=== PATIENT | male | born 1930 | race Asian ===

== ENCOUNTER 2016-06-18 06:25 | Inpatient (IN) | payer MEDICARE ==
[~2016-06-18] VITALS: Ht 177.8 cm; Wt 77.7 kg
[~2016-06-18 06:25] MED LIST: AMLO5TAB66 PO; ASPI-1061 PO; ATOR10TA69 PO; BACTDSB PO; CLOP75 PO; FURO20 PO; GLIP-220 PO; METF850T2 PO; POTA8TAB60 PO; VALS160T2 PO
[2016-06-18 06:43] LABS: ABG A-A DIFF O2 332.4 mmHg (10-20.0); ABG BASE EXCESS -2.2 mmol/L (-2.0-3.0); ABG OXYHEMOGLOBIN 97.6 % (94.0-100.0); ABG PCO2 56 mmHg (35-45); ABG PH 7.264 (7.35-7.450)
[2016-06-18 06:44] LABS: ALLEN TEST, BLOOD GAS Positive
[2016-06-18] MEDS ORDERED: SODIUM BICARBONATE [ADULT] 8.4% 50 MEQ/50 ML SYRINGE IVP ONE (06:45)
[2016-06-18] MEDS ORDERED: PROPOFOL 1000 MG/ISO-OSM 100 ML IV PRN (06:47)
[2016-06-18 06:49] LABS: BASOPHILS # (AUTO) 0.01 K/uL (0.00-0.20); BASOPHILS % (AUTO) 0.1 % (0.0-2.0); EOSINOPHILS % (AUTO) 0.03 % (1.0-6.0); HEMATOCRIT 39.4 % (41-53); HEMOGLOBIN 12.5 g/dL (13.5-17.5); LYMPHOCYTES # (AUTO) 1.7 K/uL (1.0-4.8); LYMPHOCYTES % (AUTO) 12.9 % (22.0-44.0); MEAN CORPUSCULAR HEMOGLOBIN 27.9 pg (26.0-34.0); MEAN CORPUSCULAR HGB CONC 31.8 G/dL (31.0-37.0); MEAN CORPUSCULAR VOLUME 88 fL (80-100); MONOCYTES # (AUTO) 0.7 K/uL (0.1-1.0); MONOCYTES % (AUTO) 5.6 % (2.0-9.0); NEUTROPHILS # (AUTO) 10.8 K/uL (1.8-7.7); NEUTROPHILS % (AUTO) 81.4 % (40.0-70.0); PLATELET COUNT (AUTO) 201 K/uL (150-450); RED BLOOD CELL COUNT(AUTO) 4.49 MIL/uL (4.50-5.90); RED CELL DISTRIBUTION WIDTH 14.4 % (11.5-14.5); WHITE BLOOD COUNT (AUTO) 13.3 K/uL (4.5-11.0)
[2016-06-18] MEDS ORDERED: SUCCINYLCHOLINE CHLORIDE 20 MG/ML 10 ML VIAL IVP ONE (07:00)
[2016-06-18] MEDS ORDERED: ETOMIDATE 2 MG/ML 10 ML VIAL IVP ONE (07:00)
[2016-06-18 07:02] LABS: PROTHROMBIN TIME 10.3 SEC (9.4-11.6)
[2016-06-18 07:18] LABS: APPEARANCE,URINE CLEAR (CLEAR); GLUCOSE, URINE (UA) 100 mg/dL (NEGATIVE); KETONES,URINE NEGATIVE (NEGATIVE); LEUKOCYTE ESTERASE ,URINE NEGATIVE (NEGATIVE); OCCULT BLOOD,URINE SMALL (NEGATIVE); PROTEIN,URINE SEE CONFIRM (NEGATIVE)
[2016-06-18 07:20] LABS: ADD UA MICROSCOPIC YES
[2016-06-18 07:24] LABS: SULFOSALICYLIC ACID,URINE 3+ (Negative)
[2016-06-18 07:25] LABS: WBC,URINE 0-2 /HPF (0-5)
[2016-06-18 07:26] LABS: TRANSITIONAL EPI CELLS,URINE Rare /LPF (None Seen)
[2016-06-18 07:48] LABS: ORIG DRAW (USER) PTCARESTAF
[2016-06-18] MEDS ORDERED: LEVOFLOXACIN 750 MG/D5% WATER 150 ML IV ONE (08:00)
[2016-06-18 08:12] LABS: CALCIUM, TOTAL 7.7 mg/dL (8.8-10.5); CREATININE 1.95 mg/dL (0.60-1.30); POTASSIUM 5.8 mmol/L (3.5-5.1)
[2016-06-18 08:21] LABS: TROPONIN I < 0.02 ng/mL (0.00-0.05)
[2016-06-18 08:29] LABS: AMMONIA 17 umol/L (11-32)
[2016-06-18 08:37] LABS: ALBUMIN 2.7 g/dL (3.4-5.0); BILIRUBIN,TOTAL 0.6 mg/dL (0.1-1.0); TOTAL PROTEIN, SERUM 6.3 g/dL (6.4-8.2)
[2016-06-18] MEDS ORDERED: SODIUM POLYSTYRENE SULFONATE 15 GM/60 ML SUSPENSION BOTTLE PR ONE (09:45)
[2016-06-18] MEDS ORDERED: INSULIN REGULAR, HUMAN 100 UNITS/ML IVP ONE (09:45)
[2016-06-18] MEDS ORDERED: CALCIUM GLUCONATE 100 MG/ML 10 ML IVP ONE (09:45)
[2016-06-18] MEDS ORDERED: FUROSEMIDE 40 MG/4 ML VIAL IVP ONE (09:45)
[2016-06-18] MEDS ORDERED: ALBUTEROL SULFATE 2.5 MG/0.5 ML NEB SOLUTION NEB ONE (09:45)
[2016-06-18] MEDS ORDERED: DEXTROSE 50%-WATER 25 GM/50 ML SYRINGE IVP ONE (09:45)
[2016-06-18 09:56] LABS: GLUCOSE,POINT OF CARE 142 MG/DL (70-110)
[2016-06-18] MEDS ORDERED: ACETAMINOPHEN 1000 MG/ISO-OSM 100 ML IV ONE (10:00)
[2016-06-18] MEDS ORDERED: *CLINICAL-LEVOFLOXACIN IVPB DOSING CLINICAL ONE ×2 (10:30)
[2016-06-18] MEDS: ASPIRIN 81 MG CHEWABLE TABLET PO SCH (10:30)
[2016-06-18] MEDS: CLOPIDOGREL BISULFATE 75 MG TABLET PO SCH (10:30)
[2016-06-18] MEDS ORDERED: ACETAMINOPHEN 325 MG TABLET PO PRN (10:30)
[2016-06-18] MEDS: DOCUSATE SODIUM 100 MG CAPSULE PO SCH ×2 (10:30→20:25)
[2016-06-18] MEDS ORDERED: BISACODYL 10 MG RECTAL RECTAL SUPPOSITORY PR PRN (10:30)
[2016-06-18] MEDS: SIMVASTATIN 20 MG TABLET PO SCH (10:30)
[2016-06-18] MEDS ORDERED: 0.9% SODIUM CHLORIDE 5 ML NEB SOLUTION NEB ONE ×2 (10:40→21:39)
[2016-06-18 10:56] LABS: GLUCOSE COMMENT 1 Doctor Notified; GLUCOSE,POINT OF CARE 125 MG/DL (70-110)
[2016-06-18] MEDS ORDERED: VANCOMYCIN HCL 750 MG in DEXTROSE 5%-WATER 150 ML IV ONE (11:15)
[2016-06-18 11:57] LABS: INFLUENZA TYPE B NEGATIVE FOR TYPE B (NEGATIVE)
[2016-06-18] MEDS ORDERED: NOREPINEPHRINE 4 MG/D5%-WATER 250 ML IV ONE (12:19)
[2016-06-18] MEDS ORDERED: NOREPINEPHRINE 4 MG/D5%-WATER 250 ML IV PRN (12:29)
[2016-06-18] MEDS ORDERED: SODIUM CHLORIDE 0.9% 250 ML IV ONE (12:53)
[2016-06-18] MEDS: HEPARIN SODIUM,PORCINE 5,000 UNITS/ML VIAL SQ SCH ×2 (12:55→20:24)
[2016-06-18] MEDS: PANTOPRAZOLE SODIUM 40 MG/VIAL IVP SCH (12:55)
[2016-06-18] MEDS: ALBUMIN HUMAN 25%-12.5GM/50ML 50 ML IV SCH ×2 (12:55→20:23)
[2016-06-18 14:05] VITALS: BP 124/52
[2016-06-18 14:08] VITALS: BP 124/52
[2016-06-18] MEDS: PROPOFOL 1000 MG/ISO-OSM 100 ML IV PRN (15:54)
[2016-06-18 16:00] VITALS: BP 113/47
[2016-06-18 18:00] VITALS: BP 101/50
[2016-06-18] MEDS: DEXTROSE 50%-WATER 25 GM/50 ML SYRINGE IVP PRN ×2 (18:27→22:52)
[2016-06-18 18:37] LABS: PROCALCITONIN (PCT) 5.35 ng/mL (<0.50)
[2016-06-18 20:00] VITALS: BP 120/59
[2016-06-18] MEDS: BUDESONIDE 0.5 MG/2 ML NEB SOLUTION NEB SCH (21:41)
[2016-06-18 23:11] LABS: GLUCOSE,POINT OF CARE 119 MG/DL (70-110)
[2016-06-18 23:11] LABS: GLUCOSE COMMENT 1 Received Meds; GLUCOSE,POINT OF CARE 47 MG/DL (70-110)
[2016-06-18 23:11] LABS: GLUCOSE COMMENT 1 Juice/Food/D50 Given; GLUCOSE,POINT OF CARE 22 MG/DL (70-110)
[2016-06-19] VITALS: BP 95/45
[2016-06-19 01:13] LABS: CREATINE KINASE MB 12.2 ng/mL (0-5)
[2016-06-19] MEDS: PROPOFOL 1000 MG/ISO-OSM 100 ML IV PRN ×3 (03:22→20:34)
[2016-06-19 04:00] VITALS: BP 116/66
[2016-06-19] MEDS: ALBUMIN HUMAN 25%-12.5GM/50ML 50 ML IV SCH ×3 (04:27→20:50)
[2016-06-19] MEDS ORDERED: SODIUM CHLORIDE 0.9% 250 ML IV ONE (04:37)
[2016-06-19] MEDS: DEXTROSE 50%-WATER 25 GM/50 ML SYRINGE IVP PRN (04:38)
[2016-06-19 05:27] LABS: BASOPHILS % (AUTO) 0.2 % (0.0-2.0); EOSINOPHILS % (AUTO) 1.1 % (1.0-6.0); HEMATOCRIT 33.5 % (41-53); HEMOGLOBIN 10.9 g/dL (13.5-17.5); LYMPHOCYTES # (AUTO) 1.1 K/uL (1.0-4.8); LYMPHOCYTES % (AUTO) 10.4 % (22.0-44.0); MEAN CORPUSCULAR HEMOGLOBIN 28.2 pg (26.0-34.0); MEAN CORPUSCULAR HGB CONC 32.6 G/dL (31.0-37.0); MEAN CORPUSCULAR VOLUME 87 fL (80-100); NEUTROPHILS % (AUTO) 78.3 % (40.0-70.0); PLATELET COUNT (AUTO) 163 K/uL (150-450); RED BLOOD CELL COUNT(AUTO) 3.87 MIL/uL (4.50-5.90); RED CELL DISTRIBUTION WIDTH 14.3 % (11.5-14.5); WHITE BLOOD COUNT (AUTO) 10.2 K/uL (4.5-11.0)
[2016-06-19 05:52] LABS: CALCIUM, TOTAL 8.1 mg/dL (8.8-10.5); CREATININE 2.42 mg/dL (0.60-1.30); MAGNESIUM 1.9 mg/dL (1.80-2.40); PHOSPHORUS 2.6 mg/dL (2.5-4.9); POTASSIUM 4.9 mmol/L (3.5-5.1); THYROID STIMULATING HORMONE 1.42 uIU/mL (0.36-3.74)
[2016-06-19 08:00] VITALS: BP 109/49
[2016-06-19 08:24] LABS: ABG A-A DIFF O2 231.5 mmHg (10-20.0); ABG BASE EXCESS 5.3 mmol/L (-2.0-3.0); ABG OXYHEMOGLOBIN 98.6 % (94.0-100.0); ABG PCO2 41 mmHg (35-45); ABG PH 7.471 (7.35-7.450); ALLEN TEST, BLOOD GAS Positive; TEMPERATURE, FAHRENHEIT, BG 99.8 FAHREN (96.0-98.6)
[2016-06-19] MEDS: BUDESONIDE 0.5 MG/2 ML NEB SOLUTION NEB SCH ×2 (08:28→19:35)
[2016-06-19 08:36] LABS: GLUCOSE COMMENT 1 Received Meds; GLUCOSE,POINT OF CARE 59 MG/DL (70-110)
[2016-06-19 08:36] LABS: GLUCOSE,POINT OF CARE 120 MG/DL (70-110)
[2016-06-19] MEDS: DOCUSATE SODIUM 100 MG CAPSULE PO SCH ×2 (09:00→20:48)
[2016-06-19] MEDS: CLOPIDOGREL BISULFATE 75 MG TABLET PO SCH (09:00)
[2016-06-19] MEDS: ASPIRIN 81 MG CHEWABLE TABLET PO SCH (09:00)
[2016-06-19] MEDS: SIMVASTATIN 20 MG TABLET PO SCH (09:00)
[2016-06-19 09:30] LABS: CREATINE KINASE MB 8.7 ng/mL (0-5)
[2016-06-19] MEDS: DEXTROSE 10%-WATER 500 ML IV SCH (09:39)
[2016-06-19] MEDS: HEPARIN SODIUM,PORCINE 5,000 UNITS/ML VIAL SQ SCH ×2 (09:39→20:50)
[2016-06-19] MEDS: PANTOPRAZOLE SODIUM 40 MG/VIAL IVP SCH (09:39)
[2016-06-19] MEDS: VANCOMYCIN HCL 750 MG in DEXTROSE 5%-WATER 150 ML IV SCH (09:39)
[2016-06-19 12:00] VITALS: BP_SYST 108; BP_SYST 162; BP_DIAS 61; BP_DIAS 79
[2016-06-19 16:00] VITALS: BP 111/73
[2016-06-19 20:00] VITALS: BP 104/48
[2016-06-19] MEDS ORDERED: 0.9% SODIUM CHLORIDE 10 ML SYRINGE IVP PRN (22:30)
[2016-06-20] VITALS: BP_SYST 115; BP_SYST 127; BP_DIAS 55; BP_DIAS 63
[2016-06-20] MEDS: DEXTROSE 10%-WATER 500 ML IV SCH ×2 (00:21→17:50)
[2016-06-20] MEDS: INSULIN REGULAR, HUMAN 100 UNITS/ML SQ PRN ×2 (03:45→06:17)
[2016-06-20 03:46] LABS: GLUCOSE,POINT OF CARE 83 MG/DL (70-110)
[2016-06-20 03:50] LABS: GLUCOSE,POINT OF CARE 105 MG/DL (70-110)
[2016-06-20] MEDS: PROPOFOL 1000 MG/ISO-OSM 100 ML IV PRN ×2 (03:54→16:05)
[2016-06-20 04:00] VITALS: BP 128/49
[2016-06-20] MEDS: ALBUMIN HUMAN 25%-12.5GM/50ML 50 ML IV SCH ×3 (04:35→20:41)
[2016-06-20 04:52] LABS: BASOPHILS # (AUTO) 0.15 K/uL (0.00-0.20); BASOPHILS % (AUTO) 1.6 % (0.0-2.0); EOSINOPHILS # (AUTO) 0.19 K/uL (0.00-0.70); EOSINOPHILS % (AUTO) 1.97 % (1.0-6.0); HEMATOCRIT 28.9 % (41-53); HEMOGLOBIN 9.9 g/dL (13.5-17.5); LYMPHOCYTES # (AUTO) 1.3 K/uL (1.0-4.8); LYMPHOCYTES % (AUTO) 13.4 % (22.0-44.0); MEAN CORPUSCULAR HEMOGLOBIN 28.8 pg (26.0-34.0); MEAN CORPUSCULAR HGB CONC 34.3 G/dL (31.0-37.0); MEAN CORPUSCULAR VOLUME 84 fL (80-100); MONOCYTES # (AUTO) 1.1 K/uL (0.1-1.0); NEUTROPHILS # (AUTO) 6.9 K/uL (1.8-7.7); NEUTROPHILS % (AUTO) 72.1 % (40.0-70.0); PLATELET COUNT (AUTO) 138 K/uL (150-450); RED BLOOD CELL COUNT(AUTO) 3.45 MIL/uL (4.50-5.90); RED CELL DISTRIBUTION WIDTH 14.3 % (11.5-14.5); WHITE BLOOD COUNT (AUTO) 9.6 K/uL (4.5-11.0)
[2016-06-20 05:46] LABS: ANION GAP 7 mmol/L (8-16); CALCIUM, TOTAL 8.3 mg/dL (8.8-10.5); CARBON DIOXIDE 28 mmol/L (22-29); CHLORIDE 98 mmol/L (98-107); CREATININE 2.39 mg/dL (0.60-1.30); GLOMERULAR FILTR. RATE CALC 26 mL/min (>60); PHOSPHORUS 2.7 mg/dL (2.5-4.9); SODIUM SERUM 133 mmol/L (136-145); UREA NITROGEN, BLOOD 35 mg/dL (7-18)
[2016-06-20 05:47] LABS: CREATINE KINASE, TOTAL 1319 U/L (39-308)
[2016-06-20] MEDS: BUDESONIDE 0.5 MG/2 ML NEB SOLUTION NEB SCH ×2 (07:28→21:00)
[2016-06-20 08:00] VITALS: BP 109/53
[2016-06-20] MEDS: VANCOMYCIN HCL 750 MG in DEXTROSE 5%-WATER 150 ML IV SCH (08:47)
[2016-06-20] MEDS: LEVOFLOXACIN 750 MG/D5% WATER 150 ML IV SCH (08:48)
[2016-06-20] MEDS: PANTOPRAZOLE SODIUM 40 MG/VIAL IVP SCH (08:48)
[2016-06-20 08:49] LABS: ABG A-A DIFF O2 205.1 mmHg (10-20.0); ABG BASE EXCESS 2.5 mmol/L (-2.0-3.0); ABG HCO3 26.2 mmol/L (22.0-26.0); ABG OXYHEMOGLOBIN 71.5 % (94.0-100.0); ABG PCO2 39 mmHg (35-45); ABG PH 7.454 (7.35-7.450); TEMPERATURE, FAHRENHEIT, BG 98.6 FAHREN (96.0-98.6)
[2016-06-20] MEDS: ASPIRIN 81 MG CHEWABLE TABLET PO SCH (08:49)
[2016-06-20] MEDS: SIMVASTATIN 20 MG TABLET PO SCH (08:49)
[2016-06-20] MEDS: DOCUSATE SODIUM 100 MG CAPSULE PO SCH ×2 (08:49→20:49)
[2016-06-20] MEDS: CLOPIDOGREL BISULFATE 75 MG TABLET PO SCH (08:49)
[2016-06-20 08:50] LABS: ALLEN TEST, BLOOD GAS Positive
[2016-06-20] MEDS: HEPARIN SODIUM,PORCINE 5,000 UNITS/ML VIAL SQ SCH ×2 (08:50→21:00)
[2016-06-20 09:00] LABS: ABG A-A DIFF O2 99.8 mmHg (10-20.0); ABG BASE EXCESS 2.5 mmol/L (-2.0-3.0); ABG HCO3 26.9 mmol/L (22.0-26.0); ABG OXYHEMOGLOBIN 98.7 % (94.0-100.0); ABG PCO2 34 mmHg (35-45); ABG PH 7.497 (7.35-7.450); ALLEN TEST, BLOOD GAS Positive; TEMPERATURE, FAHRENHEIT, BG 98.6 FAHREN (96.0-98.6)
[2016-06-20 12:00] VITALS: BP 104/58
[2016-06-20 15:50] LABS: APPEARANCE,UNSPUN,BODY FLUID CLOUDY (CLEAR); COLOR,BODY FLUID YELLOW (LT YELLOW)
[2016-06-20 15:53] LABS: OTHER CELLS,BODY FLUID 0
[2016-06-20 16:00] VITALS: BP 125/62
[2016-06-20 20:00] VITALS: BP 107/62
[2016-06-20] MEDS ORDERED: SODIUM CHLORIDE 0.9% 250 ML IV ONE (20:40)
[2016-06-21] VITALS: BP 115/55
[2016-06-21] MEDS: PROPOFOL 1000 MG/ISO-OSM 100 ML IV PRN ×3 (03:48→17:27)
[2016-06-21 04:00] VITALS: BP 113/63
[2016-06-21 04:50] LABS: BASOPHILS % (AUTO) 0.5 % (0.0-2.0); EOSINOPHILS % (AUTO) 2.6 % (1.0-6.0); HEMATOCRIT 26.7 % (41-53); HEMOGLOBIN 8.9 g/dL (13.5-17.5); LYMPHOCYTES % (AUTO) 15.2 % (22.0-44.0); MEAN CORPUSCULAR HEMOGLOBIN 28.4 pg (26.0-34.0); MEAN CORPUSCULAR HGB CONC 33.3 G/dL (31.0-37.0); MEAN CORPUSCULAR VOLUME 85 fL (80-100); MONOCYTES # (AUTO) 0.7 K/uL (0.1-1.0); MONOCYTES % (AUTO) 9.9 % (2.0-9.0); NEUTROPHILS # (AUTO) 4.9 K/uL (1.8-7.7); NEUTROPHILS % (AUTO) 71.8 % (40.0-70.0); PLATELET COUNT (AUTO) 133 K/uL (150-450); RED BLOOD CELL COUNT(AUTO) 3.13 MIL/uL (4.50-5.90); RED CELL DISTRIBUTION WIDTH 14.4 % (11.5-14.5); WHITE BLOOD COUNT (AUTO) 6.8 K/uL (4.5-11.0)
[2016-06-21 05:28] LABS: ALANINE AMINOTRANSFERASE 26 U/L (12-78); ALBUMIN 2.9 g/dL (3.4-5.0); ANION GAP 6 mmol/L (8-16); ASPARTATE AMINOTRANSFERASE 57 U/L (15-37); BILIRUBIN,TOTAL 1.7 mg/dL (0.1-1.0); CALCIUM, TOTAL 8.2 mg/dL (8.8-10.5); CARBON DIOXIDE 29 mmol/L (22-29); CHLORIDE 100 mmol/L (98-107); CREATINE KINASE MB 1.3 ng/mL (0-5); CREATINE KINASE, TOTAL 481 U/L (39-308); CREATININE 2.21 mg/dL (0.60-1.30); GLOMERULAR FILTR. RATE CALC 29 mL/min (>60); PHOSPHORUS 2.8 mg/dL (2.5-4.9); POTASSIUM 3.6 mmol/L (3.5-5.1); SODIUM SERUM 135 mmol/L (136-145); UREA NITROGEN, BLOOD 29 mg/dL (7-18)
[2016-06-21] MEDS: ALBUMIN HUMAN 25%-12.5GM/50ML 50 ML IV SCH ×3 (05:34→21:17)
[2016-06-21] MEDS: DEXTROSE 10%-WATER 500 ML IV SCH (07:12)
[2016-06-21 08:00] VITALS: BP 113/65
[2016-06-21] MEDS: VANCOMYCIN HCL 750 MG in DEXTROSE 5%-WATER 150 ML IV SCH (08:15)
[2016-06-21] MEDS: ASPIRIN 81 MG CHEWABLE TABLET PO SCH (08:17)
[2016-06-21] MEDS: DOCUSATE SODIUM 100 MG CAPSULE PO SCH ×2 (08:17→21:00)
[2016-06-21] MEDS: PANTOPRAZOLE SODIUM 40 MG/VIAL IVP SCH (08:17)
[2016-06-21] MEDS: HEPARIN SODIUM,PORCINE 5,000 UNITS/ML VIAL SQ SCH ×2 (08:18→21:17)
[2016-06-21] MEDS: CLOPIDOGREL BISULFATE 75 MG TABLET PO SCH (08:18)
[2016-06-21] MEDS: SIMVASTATIN 20 MG TABLET PO SCH (08:18)
[2016-06-21 09:59] LABS: ABG A-A DIFF O2 87.1 mmHg (10-20.0); ABG BASE EXCESS 3.1 mmol/L (-2.0-3.0); ABG HCO3 27.2 mmol/L (22.0-26.0); ABG OXYHEMOGLOBIN 98.9 % (94.0-100.0); ABG PCO2 37 mmHg (35-45); ABG PH 7.474 (7.35-7.450); ALLEN TEST, BLOOD GAS Positive
[2016-06-21] MEDS: BUDESONIDE 0.5 MG/2 ML NEB SOLUTION NEB SCH ×2 (11:36→21:00)
[2016-06-21 12:00] VITALS: BP 116/50
[2016-06-21] MEDS ORDERED: VECURONIUM BROMIDE 10 MG/VIAL ONE (13:46)
[2016-06-21 16:00] VITALS: BP 133/66
[2016-06-21 20:00] VITALS: BP 110/49
[2016-06-21] MEDS ORDERED: SODIUM CHLORIDE 0.9% 250 ML IV ONE (21:14)
[2016-06-22] VITALS: BP 126/63
[2016-06-22] MEDS: DEXTROSE 10%-WATER 500 ML IV SCH ×2 (00:25→17:37)
[2016-06-22 01:36] LABS: GLUCOSE COMMENT 1 Received Meds; GLUCOSE,POINT OF CARE 141 MG/DL (70-110)
[2016-06-22] MEDS: PROPOFOL 1000 MG/ISO-OSM 100 ML IV PRN ×3 (01:36→21:30)
[2016-06-22 04:00] VITALS: BP 120/57
[2016-06-22 05:06] LABS: BASOPHILS % (AUTO) 0.7 % (0.0-2.0); EOSINOPHILS % (AUTO) 3.1 % (1.0-6.0); HEMATOCRIT 27.7 % (41-53); HEMOGLOBIN 9.3 g/dL (13.5-17.5); LYMPHOCYTES # (AUTO) 1.1 K/uL (1.0-4.8); LYMPHOCYTES % (AUTO) 17.5 % (22.0-44.0); MEAN CORPUSCULAR HEMOGLOBIN 28.9 pg (26.0-34.0); MEAN CORPUSCULAR HGB CONC 33.5 G/dL (31.0-37.0); MEAN CORPUSCULAR VOLUME 86 fL (80-100); MONOCYTES # (AUTO) 0.8 K/uL (0.1-1.0); MONOCYTES % (AUTO) 12.3 % (2.0-9.0); NEUTROPHILS # (AUTO) 4.1 K/uL (1.8-7.7); NEUTROPHILS % (AUTO) 66.4 % (40.0-70.0); PLATELET COUNT (AUTO) 138 K/uL (150-450); RED BLOOD CELL COUNT(AUTO) 3.21 MIL/uL (4.50-5.90); RED CELL DISTRIBUTION WIDTH 14.4 % (11.5-14.5); WHITE BLOOD COUNT (AUTO) 6.2 K/uL (4.5-11.0)
[2016-06-22 05:32] LABS: ALBUMIN 3.1 g/dL (3.4-5.0); BILIRUBIN,TOTAL 1.6 mg/dL (0.1-1.0); CALCIUM, TOTAL 8.3 mg/dL (8.8-10.5); CREATININE 1.88 mg/dL (0.60-1.30); MAGNESIUM 2.1 mg/dL (1.80-2.40); PHOSPHORUS 2.8 mg/dL (2.5-4.9); POTASSIUM 4.2 mmol/L (3.5-5.1); TOTAL PROTEIN, SERUM 6.2 g/dL (6.4-8.2)
[2016-06-22] MEDS: ALBUMIN HUMAN 25%-12.5GM/50ML 50 ML IV SCH ×3 (05:42→21:29)
[2016-06-22 08:00] VITALS: BP 122/62
[2016-06-22] MEDS: LEVOFLOXACIN 750 MG/D5% WATER 150 ML IV SCH (08:38)
[2016-06-22] MEDS: HEPARIN SODIUM,PORCINE 5,000 UNITS/ML VIAL SQ SCH ×2 (08:39→21:30)
[2016-06-22] MEDS: EPOETIN ALFA 10,000 UNITS/ML VIAL SQ SCH (08:39)
[2016-06-22] MEDS: VANCOMYCIN HCL 1 GM/D5% WATER 200 ML IV SCH (08:39)
[2016-06-22] MEDS: PANTOPRAZOLE SODIUM 40 MG/VIAL IVP SCH (08:39)
[2016-06-22] MEDS: ASPIRIN 81 MG CHEWABLE TABLET PO SCH (08:40)
[2016-06-22] MEDS: CLOPIDOGREL BISULFATE 75 MG TABLET PO SCH (08:41)
[2016-06-22] MEDS: SIMVASTATIN 20 MG TABLET PO SCH (08:41)
[2016-06-22] MEDS: DOCUSATE SODIUM 100 MG CAPSULE PO SCH ×2 (08:41→21:00)
[2016-06-22] MEDS: BUDESONIDE 0.5 MG/2 ML NEB SOLUTION NEB SCH ×2 (09:56→20:25)
[2016-06-22 10:08] LABS: ABG HCO3 25.5 mmol/L (22.0-26.0); ABG PCO2 37 mmHg (35-45); ABG PH 7.451 (7.35-7.450); TEMPERATURE, FAHRENHEIT, BG 98.1 FAHREN (96.0-98.6)
[2016-06-22 10:09] LABS: ALLEN TEST, BLOOD GAS Positive
[2016-06-22 12:00] VITALS: BP 129/51
[2016-06-22 16:00] VITALS: BP 115/50
[2016-06-22 17:27] LABS: GLUCOSE,POINT OF CARE 167 MG/DL (70-110)
[2016-06-22 17:27] LABS: GLUCOSE COMMENT 1 Received Meds; GLUCOSE,POINT OF CARE 151 MG/DL (70-110)
[2016-06-22 17:27] LABS: GLUCOSE,POINT OF CARE 139 MG/DL (70-110)
[2016-06-22 17:27] LABS: GLUCOSE,POINT OF CARE 133 MG/DL (70-110)
[2016-06-22 17:27] LABS: GLUCOSE,POINT OF CARE 122 MG/DL (70-110)
[2016-06-22 17:27] LABS: GLUCOSE,POINT OF CARE 181 MG/DL (70-110)
[2016-06-22 20:00] VITALS: BP 113/51
[2016-06-22] MEDS ORDERED: SODIUM CHLORIDE 0.9% 250 ML IV ONE (21:26)
[2016-06-23] VITALS: BP 114/52
[2016-06-23] MEDS ORDERED: LIDOCAINE HCL 4% 50 ML SOLUTION TP ONE
[2016-06-23] MEDS ORDERED: ETOMIDATE 2 MG/ML 10 ML VIAL IVP ONE
[2016-06-23] MEDS ORDERED: LIDOCAINE HCL 2% 30 ML JELLY TP ONE
[2016-06-23] MEDS ORDERED: VECURONIUM BROMIDE 10 MG/VIAL IVP ONE
[2016-06-23] MEDS ORDERED: LIDOCAINE HCL 2% 5 ML JELLY TP ONE
[2016-06-23 00:16] LABS: GLUCOSE,POINT OF CARE 98 MG/DL (70-110)
[2016-06-23 00:16] LABS: GLUCOSE,POINT OF CARE 71 MG/DL (70-110)
[2016-06-23 04:00] VITALS: BP 132/65
[2016-06-23 04:36] LABS: GLUCOSE,POINT OF CARE 213 MG/DL (70-110)
[2016-06-23 04:41] LABS: GLUCOSE,POINT OF CARE 176 MG/DL (70-110)
[2016-06-23] MEDS: ALBUMIN HUMAN 25%-12.5GM/50ML 50 ML IV SCH ×3 (04:43→21:27)
[2016-06-23 05:05] LABS: BASOPHILS # (AUTO) 0.01 K/uL (0.00-0.20); BASOPHILS % (AUTO) 0.2 % (0.0-2.0); EOSINOPHILS # (AUTO) 0.26 K/uL (0.00-0.70); EOSINOPHILS % (AUTO) 3.86 % (1.0-6.0); HEMATOCRIT 27.2 % (41-53); HEMOGLOBIN 9.2 g/dL (13.5-17.5); LYMPHOCYTES # (AUTO) 1.2 K/uL (1.0-4.8); LYMPHOCYTES % (AUTO) 17.6 % (22.0-44.0); MEAN CORPUSCULAR HEMOGLOBIN 28.9 pg (26.0-34.0); MEAN CORPUSCULAR HGB CONC 33.8 G/dL (31.0-37.0); MEAN CORPUSCULAR VOLUME 86 fL (80-100); MONOCYTES # (AUTO) 0.8 K/uL (0.1-1.0); MONOCYTES % (AUTO) 12.6 % (2.0-9.0); NEUTROPHILS # (AUTO) 4.4 K/uL (1.8-7.7); NEUTROPHILS % (AUTO) 65.8 % (40.0-70.0); PLATELET COUNT (AUTO) 145 K/uL (150-450); RED BLOOD CELL COUNT(AUTO) 3.17 MIL/uL (4.50-5.90); RED CELL DISTRIBUTION WIDTH 14.9 % (11.5-14.5); WHITE BLOOD COUNT (AUTO) 6.6 K/uL (4.5-11.0)
[2016-06-23 05:24] LABS: ALBUMIN 3.4 g/dL (3.4-5.0); BILIRUBIN,TOTAL 1.4 mg/dL (0.1-1.0); CALCIUM, TOTAL 8.4 mg/dL (8.8-10.5); CREATININE 1.75 mg/dL (0.60-1.30); POTASSIUM 4.4 mmol/L (3.5-5.1); TOTAL PROTEIN, SERUM 6.3 g/dL (6.4-8.2)
[2016-06-23] MEDS: BUDESONIDE 0.5 MG/2 ML NEB SOLUTION NEB SCH ×2 (07:51→19:25)
[2016-06-23 08:00] VITALS: BP 134/71
[2016-06-23] MEDS: HEPARIN SODIUM,PORCINE 5,000 UNITS/ML VIAL SQ SCH ×2 (08:11→21:29)
[2016-06-23] MEDS: PROPOFOL 1000 MG/ISO-OSM 100 ML IV PRN (08:11)
[2016-06-23] MEDS: PANTOPRAZOLE SODIUM 40 MG/VIAL IVP SCH (08:11)
[2016-06-23] MEDS: DOCUSATE SODIUM 100 MG CAPSULE PO SCH ×2 (08:12→21:00)
[2016-06-23] MEDS: CLOPIDOGREL BISULFATE 75 MG TABLET PO SCH (08:12)
[2016-06-23] MEDS: VANCOMYCIN HCL 1 GM/D5% WATER 200 ML IV SCH (08:12)
[2016-06-23] MEDS: ASPIRIN 81 MG CHEWABLE TABLET PO SCH (08:12)
[2016-06-23] MEDS: SIMVASTATIN 20 MG TABLET PO SCH (08:13)
[2016-06-23 08:48] LABS: ABG A-A DIFF O2 71.8 mmHg (10-20.0); ABG BASE EXCESS -0.7 mmol/L (-2.0-3.0); ABG HCO3 24.1 mmol/L (22.0-26.0); ABG OXYHEMOGLOBIN 98.5 % (94.0-100.0); ABG PCO2 35 mmHg (35-45); ABG PH 7.438 (7.35-7.450)
[2016-06-23 08:51] LABS: ALLEN TEST, BLOOD GAS Positive
[2016-06-23 09:31] LABS: GLUCOSE,POINT OF CARE 103 MG/DL (70-110)
[2016-06-23 09:31] LABS: GLUCOSE,POINT OF CARE 112 MG/DL (70-110)
[2016-06-23 09:57] LABS: GLUCOSE,POINT OF CARE 128 MG/DL (70-110)
[2016-06-23 09:57] LABS: GLUCOSE,POINT OF CARE 136 MG/DL (70-110)
[2016-06-23 09:57] LABS: GLUCOSE,POINT OF CARE 125 MG/DL (70-110)
[2016-06-23 09:57] LABS: GLUCOSE,POINT OF CARE 126 MG/DL (70-110)
[2016-06-23 10:01] LABS: GLUCOSE,POINT OF CARE 184 MG/DL (70-110)
[2016-06-23 10:01] LABS: GLUCOSE,POINT OF CARE 182 MG/DL (70-110)
[2016-06-23 10:01] LABS: GLUCOSE,POINT OF CARE 175 MG/DL (70-110)
[2016-06-23 10:01] LABS: GLUCOSE,POINT OF CARE 172 MG/DL (70-110)
[2016-06-23 10:01] LABS: GLUCOSE,POINT OF CARE 155 MG/DL (70-110)
[2016-06-23] MEDS: DEXTROSE 10%-WATER 500 ML IV SCH (10:46)
[2016-06-23 12:00] VITALS: BP 134/68
[2016-06-23] MEDS ORDERED: SODIUM CHLORIDE 0.9% 250 ML IV ONE ×2 (12:39→19:21)
[2016-06-23 12:51] LABS: GLUCOSE,POINT OF CARE 203 MG/DL (70-110)
[2016-06-23 12:52] LABS: ABG A-A DIFF O2 93.5 mmHg (10-20.0); ABG BASE EXCESS 1.3 mmol/L (-2.0-3.0); ABG HCO3 25.7 mmol/L (22.0-26.0); ABG OXYHEMOGLOBIN 98.1 % (94.0-100.0); ABG PCO2 39 mmHg (35-45); ABG PH 7.438 (7.35-7.450); TEMPERATURE, FAHRENHEIT, BG 99.1 FAHREN (96.0-98.6)
[2016-06-23 12:53] LABS: ALLEN TEST, BLOOD GAS Positive
[2016-06-23 16:00] VITALS: BP 134/73
[2016-06-23] MEDS ORDERED: RAPID SEQUENCE KIT [RSI] 1 EACH KIT ONE ×2 (16:04)
[2016-06-23 16:09] LABS: ABG A-A DIFF O2 103.4 mmHg (10-20.0); ABG BASE EXCESS -0.2 mmol/L (-2.0-3.0); ABG HCO3 23.4 mmol/L (22.0-26.0); ABG OXYHEMOGLOBIN 79.2 % (94.0-100.0); ABG PCO2 62 mmHg (35-45); ABG PH 7.258 (7.35-7.450); TEMPERATURE, FAHRENHEIT, BG 100.3 FAHREN (96.0-98.6)
[2016-06-23 16:10] LABS: ALLEN TEST, BLOOD GAS Positive
[2016-06-23 20:00] VITALS: BP 123/62
[2016-06-23] MEDS: METOPROLOL TARTRATE 5 MG/5 ML VIAL IVP SCH (21:29)
[2016-06-23 22:05] LABS: GLUCOSE,POINT OF CARE 187 MG/DL (70-110)
[2016-06-24] VITALS: BP 109/60
[2016-06-24 04:00] VITALS: BP 142/73
[2016-06-24] MEDS: DEXTROSE 10%-WATER 500 ML IV SCH ×2 (04:30→21:23)
[2016-06-24] MEDS: ALBUMIN HUMAN 25%-12.5GM/50ML 50 ML IV SCH ×3 (04:31→21:22)
[2016-06-24 06:22] LABS: BASOPHILS % (AUTO) 0.1 % (0.0-2.0); EOSINOPHILS % (AUTO) 2.4 % (1.0-6.0); HEMATOCRIT 29.5 % (41-53); HEMOGLOBIN 9.6 g/dL (13.5-17.5); LYMPHOCYTES # (AUTO) 1.1 K/uL (1.0-4.8); LYMPHOCYTES % (AUTO) 12.9 % (22.0-44.0); MEAN CORPUSCULAR HEMOGLOBIN 28.4 pg (26.0-34.0); MEAN CORPUSCULAR HGB CONC 32.7 G/dL (31.0-37.0); MEAN CORPUSCULAR VOLUME 87 fL (80-100); MONOCYTES # (AUTO) 1.1 K/uL (0.1-1.0); MONOCYTES % (AUTO) 12.5 % (2.0-9.0); NEUTROPHILS # (AUTO) 6.4 K/uL (1.8-7.7); NEUTROPHILS % (AUTO) 72.1 % (40.0-70.0); PLATELET COUNT (AUTO) 145 K/uL (150-450); RED CELL DISTRIBUTION WIDTH 14.3 % (11.5-14.5); WHITE BLOOD COUNT (AUTO) 8.8 K/uL (4.5-11.0)
[2016-06-24 06:35] LABS: ALBUMIN 3.7 g/dL (3.4-5.0); BILIRUBIN,TOTAL 1.9 mg/dL (0.1-1.0); CALCIUM, TOTAL 8.9 mg/dL (8.8-10.5); CREATININE 1.76 mg/dL (0.60-1.30); MAGNESIUM 2.1 mg/dL (1.80-2.40); POTASSIUM 4.6 mmol/L (3.5-5.1); TOTAL PROTEIN, SERUM 6.8 g/dL (6.4-8.2)
[2016-06-24] MEDS ORDERED: HEPARIN SODIUM,PORCINE 5,000 UNITS/ML VIAL IVP PRN ×2 (07:00)
[2016-06-24] MEDS ORDERED: HEPARIN SODIUM,PORCINE 5,000 UNITS/ML VIAL IVP ONE ×2 (07:00→11:00)
[2016-06-24 07:39] LABS: PROTHROMBIN TIME 10.6 SEC (9.4-11.6)
[2016-06-24] MEDS: BUDESONIDE 0.5 MG/2 ML NEB SOLUTION NEB SCH ×2 (07:51→19:46)
[2016-06-24 08:00] VITALS: BP 155/95
[2016-06-24] MEDS: PANTOPRAZOLE SODIUM 40 MG/VIAL IVP SCH (08:51)
[2016-06-24] MEDS: LEVOFLOXACIN 750 MG/D5% WATER 150 ML IV SCH (08:51)
[2016-06-24] MEDS: VANCOMYCIN HCL 1 GM/D5% WATER 200 ML IV SCH (08:51)
[2016-06-24] MEDS: DOCUSATE SODIUM 100 MG CAPSULE PO SCH ×2 (08:52→21:00)
[2016-06-24] MEDS: CLOPIDOGREL BISULFATE 75 MG TABLET PO SCH (08:52)
[2016-06-24] MEDS: SIMVASTATIN 20 MG TABLET PO SCH (08:52)
[2016-06-24] MEDS: METOPROLOL TARTRATE 5 MG/5 ML VIAL IVP SCH ×2 (08:52→21:22)
[2016-06-24] MEDS: ASPIRIN 81 MG CHEWABLE TABLET PO SCH (08:52)
[2016-06-24] MEDS ORDERED: ACETAMINOPHEN 650 MG/ISO-OSM 65 ML IV PRN (09:15)
[2016-06-24 09:37] LABS: ABG A-A DIFF O2 74.8 mmHg (10-20.0); ABG BASE EXCESS -0.4 mmol/L (-2.0-3.0); ABG HCO3 24.6 mmol/L (22.0-26.0); ABG OXYHEMOGLOBIN 96.1 % (94.0-100.0); ABG PCO2 38 mmHg (35-45); ABG PH 7.423 (7.35-7.450); ALLEN TEST, BLOOD GAS Positive; TEMPERATURE, FAHRENHEIT, BG 101.4 FAHREN (96.0-98.6)
[2016-06-24 10:56] LABS: GLUCOSE,POINT OF CARE 157 MG/DL (70-110)
[2016-06-24 10:56] LABS: GLUCOSE,POINT OF CARE 169 MG/DL (70-110)
[2016-06-24 10:56] LABS: GLUCOSE,POINT OF CARE 163 MG/DL (70-110)
[2016-06-24] MEDS: HEPARIN SODIUM 25000 UNITS/D5W 250 ML IV PRN (10:58)
[2016-06-24 11:06] LABS: GLUCOSE,POINT OF CARE 178 MG/DL (70-110)
[2016-06-24 11:54] LABS: APPEARANCE,URINE CLOUDY (CLEAR); GLUCOSE, URINE (UA) NEGATIVE (NEGATIVE); KETONES,URINE NEGATIVE (NEGATIVE); LEUKOCYTE ESTERASE ,URINE NEGATIVE (NEGATIVE); OCCULT BLOOD,URINE NEGATIVE (NEGATIVE); PROTEIN,URINE SEE CONFIRM (NEGATIVE)
[2016-06-24 12:00] VITALS: BP 94/57
[2016-06-24 12:11] LABS: SULFOSALICYLIC ACID,URINE 2+ (Negative)
[2016-06-24 12:12] LABS: RBC,URINE 0-2 /HPF (0-2); SQUAMOUS EPITHELIAL CELL,UR Few /LPF (None Seen); WBC,URINE 0-2 /HPF (0-5)
[2016-06-24 16:00] VITALS: BP 99/50
[2016-06-24] MEDS ORDERED: SODIUM CHLORIDE 0.9% 250 ML IV ONE (19:55)
[2016-06-24 20:00] VITALS: BP 111/60
[2016-06-25] VITALS: BP 112/61
[2016-06-25 04:00] VITALS: BP 117/64
[2016-06-25] MEDS: ALBUMIN HUMAN 25%-12.5GM/50ML 50 ML IV SCH ×3 (05:06→21:33)
[2016-06-25 05:19] LABS: BASOPHILS # (AUTO) 0.02 K/uL (0.00-0.20); BASOPHILS % (AUTO) 0.2 % (0.0-2.0); EOSINOPHILS # (AUTO) 0.23 K/uL (0.00-0.70); EOSINOPHILS % (AUTO) 2.58 % (1.0-6.0); HEMATOCRIT 25.7 % (41-53); HEMOGLOBIN 8.6 g/dL (13.5-17.5); LYMPHOCYTES # (AUTO) 1.5 K/uL (1.0-4.8); LYMPHOCYTES % (AUTO) 16.8 % (22.0-44.0); MEAN CORPUSCULAR HEMOGLOBIN 28.3 pg (26.0-34.0); MEAN CORPUSCULAR HGB CONC 33.3 G/dL (31.0-37.0); MEAN CORPUSCULAR VOLUME 85 fL (80-100); MONOCYTES # (AUTO) 1.2 K/uL (0.1-1.0); MONOCYTES % (AUTO) 12.8 % (2.0-9.0); NEUTROPHILS # (AUTO) 6.2 K/uL (1.8-7.7); NEUTROPHILS % (AUTO) 67.7 % (40.0-70.0); PLATELET COUNT (AUTO) 135 K/uL (150-450); RED BLOOD CELL COUNT(AUTO) 3.02 MIL/uL (4.50-5.90); RED CELL DISTRIBUTION WIDTH 14.9 % (11.5-14.5); WHITE BLOOD COUNT (AUTO) 9.1 K/uL (4.5-11.0)
[2016-06-25 05:42] LABS: ALBUMIN 3.3 g/dL (3.4-5.0); BILIRUBIN,TOTAL 2.2 mg/dL (0.1-1.0); CALCIUM, TOTAL 8.6 mg/dL (8.8-10.5); CREATININE 1.97 mg/dL (0.60-1.30); POTASSIUM 4.1 mmol/L (3.5-5.1); TOTAL PROTEIN, SERUM 6.4 g/dL (6.4-8.2)
[2016-06-25 07:04] LABS: ABG A-A DIFF O2 84.6 mmHg (10-20.0); ABG BASE EXCESS -0.1 mmol/L (-2.0-3.0); ABG HCO3 24.6 mmol/L (22.0-26.0); ABG OXYHEMOGLOBIN 95.5 % (94.0-100.0); ABG PCO2 36 mmHg (35-45); ABG PH 7.443 (7.35-7.450); TEMPERATURE, FAHRENHEIT, BG 98.7 FAHREN (96.0-98.6)
[2016-06-25 07:05] LABS: ALLEN TEST, BLOOD GAS Positive
[2016-06-25] MEDS: BUDESONIDE 0.5 MG/2 ML NEB SOLUTION NEB SCH ×2 (07:24→20:17)
[2016-06-25] MEDS: VANCOMYCIN HCL 1 GM/D5% WATER 200 ML IV SCH (07:46)
[2016-06-25] MEDS: METOPROLOL TARTRATE 5 MG/5 ML VIAL IVP SCH ×2 (08:31→21:33)
[2016-06-25] MEDS: EPOETIN ALFA 10,000 UNITS/ML VIAL SQ SCH (08:31)
[2016-06-25] MEDS: PANTOPRAZOLE SODIUM 40 MG/VIAL IVP SCH (08:31)
[2016-06-25 09:00] VITALS: BP 114/65
[2016-06-25] MEDS: ASPIRIN 81 MG CHEWABLE TABLET PO SCH (09:00)
[2016-06-25] MEDS: CLOPIDOGREL BISULFATE 75 MG TABLET PO SCH (09:00)
[2016-06-25] MEDS: SIMVASTATIN 20 MG TABLET PO SCH (09:00)
[2016-06-25] MEDS: DOCUSATE SODIUM 100 MG CAPSULE PO SCH ×2 (09:00→21:00)
[2016-06-25 12:00] VITALS: BP 103/54
[2016-06-25] MEDS ORDERED: SODIUM CHLORIDE 0.9% 250 ML IV ONE (15:10)
[2016-06-25] MEDS: DEXTROSE 10%-WATER 500 ML IV SCH (15:18)
[2016-06-25] MEDS: HEPARIN SODIUM 25000 UNITS/D5W 250 ML IV PRN (15:19)
[2016-06-25 16:00] VITALS: BP 112/68
[2016-06-25 20:00] VITALS: BP 117/58
[2016-06-25 23:21] LABS: GLUCOSE,POINT OF CARE 135 MG/DL (70-110)
[2016-06-25 23:21] LABS: GLUCOSE,POINT OF CARE 141 MG/DL (70-110)
[2016-06-25 23:21] LABS: GLUCOSE,POINT OF CARE 148 MG/DL (70-110)
[2016-06-25 23:21] LABS: GLUCOSE,POINT OF CARE 147 MG/DL (70-110)
[2016-06-25] MEDS: INSULIN REGULAR, HUMAN 100 UNITS/ML SQ PRN (23:56)
[2016-06-26] VITALS: BP 121/66
[2016-06-26 04:00] VITALS: BP 131/65
[2016-06-26 05:03] LABS: BASOPHILS % (AUTO) 0.5 % (0.0-2.0); EOSINOPHILS % (AUTO) 3.7 % (1.0-6.0); HEMATOCRIT 26.6 % (41-53); HEMOGLOBIN 8.6 g/dL (13.5-17.5); LYMPHOCYTES # (AUTO) 1.3 K/uL (1.0-4.8); LYMPHOCYTES % (AUTO) 17.5 % (22.0-44.0); MEAN CORPUSCULAR HEMOGLOBIN 27.9 pg (26.0-34.0); MEAN CORPUSCULAR HGB CONC 32.3 G/dL (31.0-37.0); MEAN CORPUSCULAR VOLUME 86 fL (80-100); MONOCYTES # (AUTO) 0.9 K/uL (0.1-1.0); MONOCYTES % (AUTO) 11.9 % (2.0-9.0); NEUTROPHILS # (AUTO) 4.9 K/uL (1.8-7.7); NEUTROPHILS % (AUTO) 66.4 % (40.0-70.0); PLATELET COUNT (AUTO) 135 K/uL (150-450); RED BLOOD CELL COUNT(AUTO) 3.08 MIL/uL (4.50-5.90); RED CELL DISTRIBUTION WIDTH 14.9 % (11.5-14.5); WHITE BLOOD COUNT (AUTO) 7.3 K/uL (4.5-11.0)
[2016-06-26] MEDS: ALBUMIN HUMAN 25%-12.5GM/50ML 50 ML IV SCH ×3 (05:13→21:15)
[2016-06-26 05:29] LABS: ALBUMIN 3.5 g/dL (3.4-5.0); BILIRUBIN,TOTAL 2.3 mg/dL (0.1-1.0); CALCIUM, TOTAL 8.8 mg/dL (8.8-10.5); CREATININE 1.82 mg/dL (0.60-1.30); MAGNESIUM 2.1 mg/dL (1.80-2.40); PHOSPHORUS 2.9 mg/dL (2.5-4.9); POTASSIUM 3.9 mmol/L (3.5-5.1); TOTAL PROTEIN, SERUM 6.5 g/dL (6.4-8.2)
[2016-06-26] MEDS: DEXTROSE 10%-WATER 500 ML IV SCH ×2 (06:32→23:25)
[2016-06-26 08:00] VITALS: BP 144/65
[2016-06-26] MEDS: BUDESONIDE 0.5 MG/2 ML NEB SOLUTION NEB SCH ×2 (08:11→20:42)
[2016-06-26 08:31] LABS: GLUCOSE,POINT OF CARE 129 MG/DL (70-110)
[2016-06-26 08:31] LABS: GLUCOSE,POINT OF CARE 144 MG/DL (70-110)
[2016-06-26] MEDS: ASPIRIN 81 MG CHEWABLE TABLET PO SCH (09:00)
[2016-06-26] MEDS ORDERED: EPOETIN ALFA 10,000 UNITS/ML VIAL SQ SCH (09:00)
[2016-06-26] MEDS: SIMVASTATIN 20 MG TABLET PO SCH (09:00)
[2016-06-26] MEDS: METOPROLOL TARTRATE 5 MG/5 ML VIAL IVP SCH ×2 (09:00→09:08)
[2016-06-26] MEDS: CLOPIDOGREL BISULFATE 75 MG TABLET PO SCH (09:00)
[2016-06-26] MEDS: DOCUSATE SODIUM 100 MG CAPSULE PO SCH ×2 (09:00→21:00)
[2016-06-26 09:01] LABS: GLUCOSE,POINT OF CARE 178 MG/DL (70-110)
[2016-06-26] MEDS: VANCOMYCIN HCL 1 GM/D5% WATER 200 ML IV SCH (09:03)
[2016-06-26] MEDS: PANTOPRAZOLE SODIUM 40 MG/VIAL IVP SCH (09:04)
[2016-06-26] MEDS: LEVOFLOXACIN 750 MG/D5% WATER 150 ML IV SCH (09:04)
[2016-06-26 09:06] LABS: GLUCOSE,POINT OF CARE 128 MG/DL (70-110)
[2016-06-26 09:06] LABS: GLUCOSE,POINT OF CARE 126 MG/DL (70-110)
[2016-06-26 09:06] LABS: GLUCOSE,POINT OF CARE 144 MG/DL (70-110)
[2016-06-26 09:06] LABS: GLUCOSE,POINT OF CARE 133 MG/DL (70-110)
[2016-06-26 09:11] LABS: GLUCOSE,POINT OF CARE 135 MG/DL (70-110)
[2016-06-26 11:05] LABS: ABG A-A DIFF O2 84.1 mmHg (10-20.0); ABG BASE EXCESS -2.2 mmol/L (-2.0-3.0); ABG OXYHEMOGLOBIN 96.2 % (94.0-100.0); ABG PCO2 32 mmHg (35-45); ABG PH 7.447 (7.35-7.450); ALLEN TEST, BLOOD GAS Positive
[2016-06-26 11:34] LABS: TOTAL PROTEIN,BODY FLUID,REF 2.8 g/dL
[2016-06-26 12:00] VITALS: BP 137/69
[2016-06-26 12:50] LABS: ABG A-A DIFF O2 95.2 mmHg (10-20.0); ABG BASE EXCESS -2.5 mmol/L (-2.0-3.0); ABG HCO3 22.6 mmol/L (22.0-26.0); ABG OXYHEMOGLOBIN 92.9 % (94.0-100.0); ABG PCO2 37 mmHg (35-45); ABG PH 7.394 (7.35-7.450); ALLEN TEST, BLOOD GAS Positive; TEMPERATURE, FAHRENHEIT, BG 99.3 FAHREN (96.0-98.6)
[2016-06-26 16:00] VITALS: BP 138/78
[2016-06-26 17:12] LABS: GLUCOSE,POINT OF CARE 165 MG/DL (70-110)
[2016-06-26 18:46] LABS: HEMATOCRIT 26.2 % (41-53); HEMOGLOBIN 8.4 g/dL (13.5-17.5)
[2016-06-26 20:00] VITALS: BP 126/63
[2016-06-26] MEDS: HEPARIN SODIUM 25000 UNITS/D5W 250 ML IV PRN (22:48)
[2016-06-27] VITALS: BP 128/57
[2016-06-27 04:00] VITALS: BP 136/71
[2016-06-27] MEDS: ALBUMIN HUMAN 25%-12.5GM/50ML 50 ML IV SCH (05:14)
[2016-06-27 05:27] LABS: BASOPHILS % (AUTO) 0.5 % (0.0-2.0); EOSINOPHILS % (AUTO) 3.3 % (1.0-6.0); HEMOGLOBIN 8.8 g/dL (13.5-17.5); LYMPHOCYTES # (AUTO) 1.3 K/uL (1.0-4.8); LYMPHOCYTES % (AUTO) 19.8 % (22.0-44.0); MEAN CORPUSCULAR HEMOGLOBIN 28.1 pg (26.0-34.0); MEAN CORPUSCULAR HGB CONC 32.7 G/dL (31.0-37.0); MEAN CORPUSCULAR VOLUME 86 fL (80-100); MONOCYTES # (AUTO) 0.8 K/uL (0.1-1.0); MONOCYTES % (AUTO) 11.9 % (2.0-9.0); NEUTROPHILS # (AUTO) 4.3 K/uL (1.8-7.7); NEUTROPHILS % (AUTO) 64.5 % (40.0-70.0); PLATELET COUNT (AUTO) 155 K/uL (150-450); RED BLOOD CELL COUNT(AUTO) 3.15 MIL/uL (4.50-5.90); RED CELL DISTRIBUTION WIDTH 14.6 % (11.5-14.5); WHITE BLOOD COUNT (AUTO) 6.6 K/uL (4.5-11.0)
[2016-06-27 05:37] LABS: ALBUMIN 3.6 g/dL (3.4-5.0); BILIRUBIN,TOTAL 2.4 mg/dL (0.1-1.0); CALCIUM, TOTAL 8.6 mg/dL (8.8-10.5); CREATININE 1.8 mg/dL (0.60-1.30); MAGNESIUM 1.9 mg/dL (1.80-2.40); PHOSPHORUS 3.3 mg/dL (2.5-4.9); POTASSIUM 3.7 mmol/L (3.5-5.1); TOTAL PROTEIN, SERUM 6.8 g/dL (6.4-8.2)
[2016-06-27] MEDS: EPOETIN ALFA 10,000 UNITS/ML VIAL SQ SCH (07:50)
[2016-06-27] MEDS: VANCOMYCIN HCL 1 GM/D5% WATER 200 ML IV SCH (07:50)
[2016-06-27] MEDS: PANTOPRAZOLE SODIUM 40 MG/VIAL IVP SCH (07:50)
[2016-06-27] MEDS: CLOPIDOGREL BISULFATE 75 MG TABLET PO SCH (07:51)
[2016-06-27] MEDS: ASPIRIN 81 MG CHEWABLE TABLET PO SCH (07:51)
[2016-06-27] MEDS: DOCUSATE SODIUM 100 MG CAPSULE PO SCH ×2 (07:51→20:10)
[2016-06-27] MEDS: SIMVASTATIN 20 MG TABLET PO SCH (07:51)
[2016-06-27 08:00] VITALS: BP 134/69
[2016-06-27] MEDS: BUDESONIDE 0.5 MG/2 ML NEB SOLUTION NEB SCH ×2 (08:26→20:50)
[2016-06-27 09:07] LABS: GLUCOSE,POINT OF CARE 120 MG/DL (70-110)
[2016-06-27 09:07] LABS: GLUCOSE,POINT OF CARE 125 MG/DL (70-110)
[2016-06-27 09:07] LABS: GLUCOSE,POINT OF CARE 125 MG/DL (70-110)
[2016-06-27 09:07] LABS: GLUCOSE,POINT OF CARE 121 MG/DL (70-110)
[2016-06-27 09:07] LABS: GLUCOSE,POINT OF CARE 122 MG/DL (70-110)
[2016-06-27 09:07] LABS: GLUCOSE,POINT OF CARE 133 MG/DL (70-110)
[2016-06-27 12:00] VITALS: BP 130/94
[2016-06-27 12:31] LABS: ABG A-A DIFF O2 89.1 mmHg (10-20.0); ABG HCO3 22.8 mmol/L (22.0-26.0); ABG OXYHEMOGLOBIN 93.6 % (94.0-100.0); ABG PCO2 41 mmHg (35-45); ABG PH 7.371 (7.35-7.450); TEMPERATURE, FAHRENHEIT, BG 98.6 FAHREN (96.0-98.6)
[2016-06-27 12:32] LABS: ALLEN TEST, BLOOD GAS Positive
[2016-06-27 16:00] VITALS: BP 136/67
[2016-06-27] MEDS: DEXTROSE 10%-WATER 500 ML IV SCH (16:15)
[2016-06-27 20:00] VITALS: BP 118/62
[2016-06-27 20:40] LABS: GLUCOSE,POINT OF CARE 133 MG/DL (70-110)
[2016-06-27 20:50] LABS: GLUCOSE,POINT OF CARE 122 MG/DL (70-110)
[2016-06-27] MEDS: INSULIN REGULAR, HUMAN 100 UNITS/ML SQ PRN ×2 (21:03→23:30)
[2016-06-28] VITALS: BP 117/54
[2016-06-28 04:00] VITALS: BP 134/72
[2016-06-28] MEDS: INSULIN REGULAR, HUMAN 100 UNITS/ML SQ PRN ×3 (04:43→23:14)
[2016-06-28 05:05] LABS: BASOPHILS # (AUTO) 0.03 K/uL (0.00-0.20); BASOPHILS % (AUTO) 0.5 % (0.0-2.0); EOSINOPHILS # (AUTO) 0.25 K/uL (0.00-0.70); EOSINOPHILS % (AUTO) 3.77 % (1.0-6.0); HEMOGLOBIN 8.9 g/dL (13.5-17.5); LYMPHOCYTES # (AUTO) 1.6 K/uL (1.0-4.8); LYMPHOCYTES % (AUTO) 23.6 % (22.0-44.0); MEAN CORPUSCULAR HEMOGLOBIN 28.4 pg (26.0-34.0); MEAN CORPUSCULAR HGB CONC 34.2 G/dL (31.0-37.0); MEAN CORPUSCULAR VOLUME 83 fL (80-100); MONOCYTES # (AUTO) 0.9 K/uL (0.1-1.0); MONOCYTES % (AUTO) 13.3 % (2.0-9.0); NEUTROPHILS # (AUTO) 3.9 K/uL (1.8-7.7); NEUTROPHILS % (AUTO) 58.8 % (40.0-70.0); RED BLOOD CELL COUNT(AUTO) 3.13 MIL/uL (4.50-5.90); RED CELL DISTRIBUTION WIDTH 15.2 % (11.5-14.5)
[2016-06-28 05:10] LABS: WHITE BLOOD COUNT (AUTO) 8.2 K/uL (4.5-11.0)
[2016-06-28 05:34] LABS: ALBUMIN 3.3 g/dL (3.4-5.0); BILIRUBIN,TOTAL 2.4 mg/dL (0.1-1.0); CALCIUM, TOTAL 8.8 mg/dL (8.8-10.5); CREATININE 1.64 mg/dL (0.60-1.30); POTASSIUM 3.6 mmol/L (3.5-5.1); TOTAL PROTEIN, SERUM 6.4 g/dL (6.4-8.2)
[2016-06-28 05:48] LABS: PLATELET COUNT (AUTO) 162 K/uL (150-450); RBC MORPHOLOGY COMMENT ABNORMAL RBC MORPH
[2016-06-28] MEDS: DEXTROSE 10%-WATER 500 ML IV SCH ×2 (06:11→22:26)
[2016-06-28] MEDS ORDERED: SODIUM CHLORIDE 0.9% 250 ML IV ONE (07:57)
[2016-06-28] MEDS: LEVOFLOXACIN 750 MG/D5% WATER 150 ML IV SCH (07:58)
[2016-06-28] MEDS: VANCOMYCIN HCL 1 GM/D5% WATER 200 ML IV SCH (07:58)
[2016-06-28] MEDS: DOCUSATE SODIUM 100 MG CAPSULE PO SCH ×2 (07:59→19:59)
[2016-06-28] MEDS: CLOPIDOGREL BISULFATE 75 MG TABLET PO SCH (07:59)
[2016-06-28] MEDS: ASPIRIN 81 MG CHEWABLE TABLET PO SCH (07:59)
[2016-06-28] MEDS: PANTOPRAZOLE SODIUM 40 MG/VIAL IVP SCH (07:59)
[2016-06-28] MEDS: SIMVASTATIN 20 MG TABLET PO SCH (07:59)
[2016-06-28 08:00] VITALS: BP 123/53
[2016-06-28 08:36] LABS: GLUCOSE,POINT OF CARE 130 MG/DL (70-110)
[2016-06-28 08:36] LABS: GLUCOSE,POINT OF CARE 118 MG/DL (70-110)
[2016-06-28 08:36] LABS: GLUCOSE,POINT OF CARE 132 MG/DL (70-110)
[2016-06-28] MEDS: BUDESONIDE 0.5 MG/2 ML NEB SOLUTION NEB SCH ×2 (09:04→19:56)
[2016-06-28 09:45] LABS: GLUCOSE,POINT OF CARE 122 MG/DL (70-110)
[2016-06-28 12:00] VITALS: BP 131/78
[2016-06-28 16:00] VITALS: BP 124/83
[2016-06-28 20:00] VITALS: BP 146/73
[2016-06-29 04:00] VITALS: BP 139/80
[2016-06-29 04:56] LABS: BASOPHILS % (AUTO) 0.5 % (0.0-2.0); EOSINOPHILS % (AUTO) 2.9 % (1.0-6.0); HEMATOCRIT 28.6 % (41-53); HEMOGLOBIN 9.4 g/dL (13.5-17.5); LYMPHOCYTES # (AUTO) 1.7 K/uL (1.0-4.8); LYMPHOCYTES % (AUTO) 22.5 % (22.0-44.0); MEAN CORPUSCULAR HEMOGLOBIN 28.1 pg (26.0-34.0); MEAN CORPUSCULAR HGB CONC 32.7 G/dL (31.0-37.0); MEAN CORPUSCULAR VOLUME 86 fL (80-100); MONOCYTES % (AUTO) 13.2 % (2.0-9.0); NEUTROPHILS # (AUTO) 4.7 K/uL (1.8-7.7); NEUTROPHILS % (AUTO) 60.9 % (40.0-70.0); PLATELET COUNT (AUTO) 181 K/uL (150-450); RED BLOOD CELL COUNT(AUTO) 3.33 MIL/uL (4.50-5.90); RED CELL DISTRIBUTION WIDTH 15.1 % (11.5-14.5); WHITE BLOOD COUNT (AUTO) 7.7 K/uL (4.5-11.0)
[2016-06-29] MEDS: INSULIN REGULAR, HUMAN 100 UNITS/ML SQ PRN (05:08)
[2016-06-29 05:10] LABS: ALBUMIN 3.5 g/dL (3.4-5.0); BILIRUBIN,TOTAL 2.3 mg/dL (0.1-1.0); CALCIUM, TOTAL 8.8 mg/dL (8.8-10.5); CREATININE 1.6 mg/dL (0.60-1.30); POTASSIUM 3.9 mmol/L (3.5-5.1)
[2016-06-29 08:00] VITALS: BP 115/61
[2016-06-29] MEDS: BUDESONIDE 0.5 MG/2 ML NEB SOLUTION NEB SCH ×2 (08:02→19:35)
[2016-06-29] MEDS: EPOETIN ALFA 10,000 UNITS/ML VIAL SQ SCH (08:33)
[2016-06-29] MEDS: PANTOPRAZOLE SODIUM 40 MG/VIAL IVP SCH (08:33)
[2016-06-29] MEDS: ASPIRIN 81 MG CHEWABLE TABLET PO SCH (08:33)
[2016-06-29] MEDS: VANCOMYCIN HCL 750 MG in DEXTROSE 5%-WATER 150 ML IV SCH (08:33)
[2016-06-29] MEDS: SIMVASTATIN 20 MG TABLET PO SCH (08:34)
[2016-06-29] MEDS: CLOPIDOGREL BISULFATE 75 MG TABLET PO SCH (08:34)
[2016-06-29] MEDS: DOCUSATE SODIUM 100 MG CAPSULE PO SCH ×2 (08:34→21:00)
[2016-06-29] MEDS ORDERED: *CLINICAL-TOTAL PARENTERAL NUTRITION DOSING CLINICAL ONE (10:15)
[2016-06-29 12:00] VITALS: BP 104/66
[2016-06-29] MEDS ORDERED: DIGOXIN 250 MCG/ML 2 ML AMP IVP ONE (12:15)
[2016-06-29 12:27] LABS: INR 1.2 (0.9-1.1); PROTHROMBIN TIME 12.7 SEC (9.4-11.6)
[2016-06-29] MEDS ORDERED: AMIODARONE HCL 150 MG in DEXTROSE 5%-WATER 97 ML IV ONE (12:35)
[2016-06-29] MEDS ORDERED: AMIODARONE HCL 360 MG in DEXTROSE 5%-WATER 242.8 ML IV ONE (12:45)
[2016-06-29 16:00] VITALS: BP 108/56
[2016-06-29] MEDS: DEXTROSE 10%-WATER 500 ML IV SCH (16:59)
[2016-06-29] MEDS ORDERED: DEXTROSE 50%-WATER 25 GM/50 ML SYRINGE IVP PRN (17:00)
[2016-06-29 17:51] LABS: GLUCOSE,POINT OF CARE 104 MG/DL (70-110)
[2016-06-29 17:51] LABS: GLUCOSE,POINT OF CARE 118 MG/DL (70-110)
[2016-06-29 17:51] LABS: GLUCOSE,POINT OF CARE 123 MG/DL (70-110)
[2016-06-29 17:51] LABS: GLUCOSE,POINT OF CARE 118 MG/DL (70-110)
[2016-06-29 17:51] LABS: GLUCOSE,POINT OF CARE 105 MG/DL (70-110)
[2016-06-29] MEDS ORDERED: AMIODARONE HCL 540 MG in DEXTROSE 5%-WATER 239.2 ML IV ONE (18:45)
[2016-06-29 20:00] VITALS: BP 130/68
[2016-06-29] MEDS ORDERED: TPN IV SCH ×9 (22:00)
[2016-06-29] MEDS ORDERED: SODIUM PHOS M BASIC D BASIC IV SCH ×9 (22:00)
[2016-06-29] MEDS ORDERED: SODIUM CHLORIDE IV SCH ×9 (22:00)
[2016-06-29] MEDS ORDERED: [UNRECOGNIZED DRUG - OTHER] IV SCH ×9 (22:00)
[2016-06-30] VITALS: BP 138/64
[2016-06-30 01:01] LABS: GLUCOSE,POINT OF CARE 126 MG/DL (70-110)
[2016-06-30 01:01] LABS: GLUCOSE,POINT OF CARE 129 MG/DL (70-110)
[2016-06-30 01:01] LABS: GLUCOSE,POINT OF CARE 112 MG/DL (70-110)
[2016-06-30 02:51] LABS: GLUCOSE,POINT OF CARE 174 MG/DL (70-110)
[2016-06-30 02:51] LABS: GLUCOSE,POINT OF CARE 112 MG/DL (70-110)
[2016-06-30 04:00] VITALS: BP 147/74
[2016-06-30] MEDS ORDERED: SODIUM CHLORIDE 0.9% 250 ML IV ONE (04:17)
[2016-06-30 05:34] LABS: BASOPHILS % (AUTO) 0.3 % (0.0-2.0); EOSINOPHILS % (AUTO) 2.4 % (1.0-6.0); HEMATOCRIT 27.6 % (41-53); HEMOGLOBIN 8.8 g/dL (13.5-17.5); LYMPHOCYTES # (AUTO) 1.5 K/uL (1.0-4.8); LYMPHOCYTES % (AUTO) 16.6 % (22.0-44.0); MEAN CORPUSCULAR HEMOGLOBIN 27.6 pg (26.0-34.0); MEAN CORPUSCULAR VOLUME 86 fL (80-100); MONOCYTES # (AUTO) 0.9 K/uL (0.1-1.0); MONOCYTES % (AUTO) 9.9 % (2.0-9.0); NEUTROPHILS # (AUTO) 6.2 K/uL (1.8-7.7); NEUTROPHILS % (AUTO) 70.8 % (40.0-70.0); PLATELET COUNT (AUTO) 196 K/uL (150-450); WHITE BLOOD COUNT (AUTO) 8.7 K/uL (4.5-11.0)
[2016-06-30 05:56] LABS: ALBUMIN 3.2 g/dL (3.4-5.0); BILIRUBIN,TOTAL 2.2 mg/dL (0.1-1.0); CALCIUM, TOTAL 8.6 mg/dL (8.8-10.5); CREATININE 1.49 mg/dL (0.60-1.30); MAGNESIUM 1.9 mg/dL (1.80-2.40); PHOSPHORUS 2.9 mg/dL (2.5-4.9); POTASSIUM 3.4 mmol/L (3.5-5.1); TOTAL PROTEIN, SERUM 6.4 g/dL (6.4-8.2)
[2016-06-30] MEDS: INSULIN REGULAR, HUMAN 100 UNITS/ML SQ PRN ×4 (06:52→20:33)
[2016-06-30 08:00] VITALS: BP 147/77
[2016-06-30] MEDS: BUDESONIDE 0.5 MG/2 ML NEB SOLUTION NEB SCH ×2 (08:11→21:25)
[2016-06-30] MEDS ORDERED: POTASSIUM CHL 10 MEQ/WATER 100 ML IV ONE (08:48)
[2016-06-30] MEDS: PANTOPRAZOLE SODIUM 40 MG/VIAL IVP SCH (08:49)
[2016-06-30] MEDS: ASPIRIN 81 MG CHEWABLE TABLET PO SCH (08:49)
[2016-06-30] MEDS: POTASSIUM CHL 10 MEQ/WATER 50 ML IV SCH ×2 (08:49→10:10)
[2016-06-30] MEDS: DOCUSATE SODIUM 100 MG CAPSULE PO SCH ×2 (08:49→21:00)
[2016-06-30] MEDS: VANCOMYCIN HCL 750 MG in DEXTROSE 5%-WATER 150 ML IV SCH (08:49)
[2016-06-30] MEDS: CLOPIDOGREL BISULFATE 75 MG TABLET PO SCH (08:50)
[2016-06-30] MEDS: SIMVASTATIN 20 MG TABLET PO SCH (08:50)
[2016-06-30] MEDS: FAT EMULSIONS 20% 100 ML IV SCH (10:10)
[2016-06-30] MEDS: LEVOFLOXACIN 750 MG/D5% WATER 150 ML IV SCH (11:30)
[2016-06-30 12:00] VITALS: BP 154/83
[2016-06-30] MEDS: AMIODARONE HCL 750 MG in DEXTROSE 5%-WATER 485 ML IV SCH (12:56)
[2016-06-30 16:00] VITALS: BP 124/63
[2016-06-30 16:36] LABS: GLUCOSE,POINT OF CARE 176 MG/DL (70-110)
[2016-06-30 16:36] LABS: GLUCOSE,POINT OF CARE 103 MG/DL (70-110)
[2016-06-30 20:00] VITALS: BP 140/64
[2016-06-30] MEDS: TPN SOLUTION 1 EA, SODIUM CHLORIDE 70 MEQ, SODIUM PHOS,M-BASIC-D-BASIC 30 MEQ, POTASSIU... IV SCH ×9 (22:54)
[2016-07-01] VITALS (8 sets, daily range): BP systolic 110–179; BP diastolic 50–90
[2016-07-01] MEDS: INSULIN REGULAR, HUMAN 100 UNITS/ML SQ PRN ×6 (00:15→20:41)
[2016-07-01 02:12] LABS: GLUCOSE COMMENT 1 Received Meds; GLUCOSE,POINT OF CARE 146 MG/DL (70-110)
[2016-07-01 02:12] LABS: GLUCOSE COMMENT 1 Received Meds; GLUCOSE,POINT OF CARE 131 MG/DL (70-110)
[2016-07-01 02:12] LABS: GLUCOSE COMMENT 1 Received Meds; GLUCOSE,POINT OF CARE 181 MG/DL (70-110)
[2016-07-01] MEDS ORDERED: SODIUM CHLORIDE 0.9% 250 ML IV ONE ×3 (05:08→22:38)
[2016-07-01 06:32] LABS: CALCIUM, TOTAL 8.9 mg/dL (8.8-10.5); CREATININE 1.4 mg/dL (0.60-1.30); MAGNESIUM 1.9 mg/dL (1.80-2.40); POTASSIUM 3.9 mmol/L (3.5-5.1)
[2016-07-01] MEDS: VANCOMYCIN HCL 750 MG in DEXTROSE 5%-WATER 150 ML IV SCH (08:43)
[2016-07-01] MEDS: PANTOPRAZOLE SODIUM 40 MG/VIAL IVP SCH (08:43)
[2016-07-01 08:52] LABS: BASOPHILS % (AUTO) 0.5 % (0.0-2.0); EOSINOPHILS % (AUTO) 2.2 % (1.0-6.0); HEMATOCRIT 30.6 % (41-53); HEMOGLOBIN 9.9 g/dL (13.5-17.5); LYMPHOCYTES # (AUTO) 2.5 K/uL (1.0-4.8); MEAN CORPUSCULAR HEMOGLOBIN 27.9 pg (26.0-34.0); MEAN CORPUSCULAR HGB CONC 32.3 G/dL (31.0-37.0); MEAN CORPUSCULAR VOLUME 87 fL (80-100); MONOCYTES # (AUTO) 1.3 K/uL (0.1-1.0); MONOCYTES % (AUTO) 10.8 % (2.0-9.0); NEUTROPHILS # (AUTO) 7.9 K/uL (1.8-7.7); NEUTROPHILS % (AUTO) 65.5 % (40.0-70.0); PLATELET COUNT (AUTO) 186 K/uL (150-450); RED BLOOD CELL COUNT(AUTO) 3.53 MIL/uL (4.50-5.90); RED CELL DISTRIBUTION WIDTH 15.6 % (11.5-14.5); WHITE BLOOD COUNT (AUTO) 12.1 K/uL (4.5-11.0)
[2016-07-01] MEDS: CLOPIDOGREL BISULFATE 75 MG TABLET PO SCH (09:00)
[2016-07-01] MEDS: DOCUSATE SODIUM 100 MG CAPSULE PO SCH ×2 (09:00→20:43)
[2016-07-01] MEDS: SIMVASTATIN 20 MG TABLET PO SCH (09:00)
[2016-07-01] MEDS: ASPIRIN 81 MG CHEWABLE TABLET PO SCH (09:00)
[2016-07-01] MEDS ORDERED: FUROSEMIDE 40 MG/4 ML VIAL IVP PRN (09:15)
[2016-07-01] MEDS: FAT EMULSIONS 20% 100 ML IV SCH (10:19)
[2016-07-01] MEDS: BUDESONIDE 0.5 MG/2 ML NEB SOLUTION NEB SCH ×2 (10:24→20:45)
[2016-07-01] MEDS: AMIODARONE HCL 750 MG in DEXTROSE 5%-WATER 485 ML IV SCH (14:11)
[2016-07-01] MEDS: ACETAMINOPHEN 650 MG RECTAL SUPPOSITORY PR PRN ×2 (16:04→23:13)
[2016-07-01] MEDS: HEPARIN SODIUM,PORCINE 5,000 UNITS/ML VIAL SQ SCH (16:04)
[2016-07-01] MEDS: TPN SOLUTION 1 EA, SODIUM CHLORIDE 70 MEQ, SODIUM PHOS,M-BASIC-D-BASIC 30 MEQ, POTASSIU... IV SCH ×9 (21:54)
[2016-07-02] VITALS: BP 110/56
[2016-07-02] MEDS: HEPARIN SODIUM,PORCINE 5,000 UNITS/ML VIAL SQ SCH ×3 (00:34→16:06)
[2016-07-02 04:00] VITALS: BP 108/49
[2016-07-02 05:33] LABS: CALCIUM, TOTAL 8.4 mg/dL (8.8-10.5); CREATININE 1.65 mg/dL (0.60-1.30); PHOSPHORUS 3.7 mg/dL (2.5-4.9); POTASSIUM 3.6 mmol/L (3.5-5.1)
[2016-07-02] MEDS: INSULIN REGULAR, HUMAN 100 UNITS/ML SQ PRN ×4 (05:44→20:40)
[2016-07-02] MEDS: BUDESONIDE 0.5 MG/2 ML NEB SOLUTION NEB SCH ×2 (07:51→20:46)
[2016-07-02 08:00] VITALS: BP 100/51
[2016-07-02 08:26] LABS: GLUCOSE COMMENT 1 Received Meds; GLUCOSE,POINT OF CARE 209 MG/DL (70-110)
[2016-07-02 08:26] LABS: GLUCOSE COMMENT 1 Received Meds; GLUCOSE,POINT OF CARE 210 MG/DL (70-110)
[2016-07-02 08:26] LABS: GLUCOSE COMMENT 1 Received Meds; GLUCOSE,POINT OF CARE 164 MG/DL (70-110)
[2016-07-02 08:26] LABS: GLUCOSE COMMENT 1 Received Meds; GLUCOSE,POINT OF CARE 144 MG/DL (70-110)
[2016-07-02 08:26] LABS: GLUCOSE,POINT OF CARE 113 MG/DL (70-110)
[2016-07-02 08:26] LABS: GLUCOSE COMMENT 1 Received Meds; GLUCOSE,POINT OF CARE 147 MG/DL (70-110)
[2016-07-02 08:26] LABS: GLUCOSE,POINT OF CARE 170 MG/DL (70-110)
[2016-07-02 08:26] LABS: GLUCOSE COMMENT 1 Received Meds; GLUCOSE,POINT OF CARE 144 MG/DL (70-110)
[2016-07-02] MEDS: LEVOFLOXACIN 750 MG/D5% WATER 150 ML IV SCH (08:55)
[2016-07-02] MEDS: VANCOMYCIN HCL 750 MG in DEXTROSE 5%-WATER 150 ML IV SCH (08:55)
[2016-07-02] MEDS: PANTOPRAZOLE SODIUM 40 MG/VIAL IVP SCH (08:56)
[2016-07-02] MEDS: EPOETIN ALFA 10,000 UNITS/ML VIAL SQ SCH (08:56)
[2016-07-02] MEDS: ASPIRIN 81 MG CHEWABLE TABLET PO SCH (08:56)
[2016-07-02] MEDS: SIMVASTATIN 20 MG TABLET PO SCH (08:57)
[2016-07-02] MEDS: DOCUSATE SODIUM 100 MG CAPSULE PO SCH ×2 (08:57→20:41)
[2016-07-02] MEDS: CLOPIDOGREL BISULFATE 75 MG TABLET PO SCH (08:57)
[2016-07-02] MEDS: FAT EMULSIONS 20% 100 ML IV SCH (10:00)
[2016-07-02] MEDS ORDERED: FentaNYL CITRATE-PF 100 MCG/2 ML VIAL ONE (11:44)
[2016-07-02] MEDS ORDERED: MIDAZOLAM HCL 5 MG/ML VIAL ONE (11:44)
[2016-07-02 12:00] VITALS: BP 144/44
[2016-07-02] MEDS: AMIODARONE HCL 750 MG in DEXTROSE 5%-WATER 485 ML IV SCH (12:17)
[2016-07-02 16:00] VITALS: BP 139/65
[2016-07-02 20:00] VITALS: BP 110/39
[2016-07-02] MEDS ORDERED: TPN SOLUTION 1 EA, SODIUM CHLORIDE 70 MEQ, SODIUM PHOS,M-BASIC-D-BASIC 30 MEQ, POTASSIU... IV SCH ×9 (22:00)
[2016-07-03] VITALS: BP 128/64
[2016-07-03] MEDS: INSULIN REGULAR, HUMAN 100 UNITS/ML SQ PRN ×4 (00:12→17:35)
[2016-07-03] MEDS: HEPARIN SODIUM,PORCINE 5,000 UNITS/ML VIAL SQ SCH ×3 (00:13→16:00)
[2016-07-03] MEDS ORDERED: FentaNYL CITRATE-PF 100 MCG/2 ML VIAL IVP ONE (03:57)
[2016-07-03] MEDS ORDERED: 0.9% SODIUM CHLORIDE 10 ML VIAL IVP ONE (03:57)
[2016-07-03] MEDS ORDERED: ROCURONIUM BROMIDE 10 MG/ML 5 ML VIAL IVP ONE (03:57)
[2016-07-03] MEDS ORDERED: EPHEDrine SULFATE 50 MG/ML VIAL IM ONE (03:57)
[2016-07-03] MEDS ORDERED: MIDAZOLAM HCL 2 MG/2 ML VIAL IVP ONE (03:57)
[2016-07-03] MEDS ORDERED: PHENYLEPHRINE HCL 10 MG/ML VIAL IVP ONE (03:57)
[2016-07-03] MEDS ORDERED: PROPOFOL 1% 20 ML VIAL IVP ONE (03:57)
[2016-07-03 04:00] VITALS: BP 114/57
[2016-07-03 05:25] LABS: GLUCOSE COMMENT 1 Received Meds; GLUCOSE,POINT OF CARE 177 MG/DL (70-110)
[2016-07-03 06:39] LABS: BASOPHILS % (AUTO) 0.6 % (0.0-2.0); EOSINOPHILS % (AUTO) 4.2 % (1.0-6.0); HEMATOCRIT 27.1 % (41-53); HEMOGLOBIN 8.6 g/dL (13.5-17.5); LYMPHOCYTES # (AUTO) 1.4 K/uL (1.0-4.8); LYMPHOCYTES % (AUTO) 17.3 % (22.0-44.0); MEAN CORPUSCULAR HEMOGLOBIN 27.6 pg (26.0-34.0); MEAN CORPUSCULAR HGB CONC 31.8 G/dL (31.0-37.0); MEAN CORPUSCULAR VOLUME 87 fL (80-100); MONOCYTES # (AUTO) 0.9 K/uL (0.1-1.0); MONOCYTES % (AUTO) 11.1 % (2.0-9.0); NEUTROPHILS # (AUTO) 5.3 K/uL (1.8-7.7); NEUTROPHILS % (AUTO) 66.8 % (40.0-70.0); PLATELET COUNT (AUTO) 198 K/uL (150-450); RED BLOOD CELL COUNT(AUTO) 3.11 MIL/uL (4.50-5.90); WHITE BLOOD COUNT (AUTO) 7.9 K/uL (4.5-11.0)
[2016-07-03 06:50] LABS: CALCIUM, TOTAL 8.6 mg/dL (8.8-10.5); CREATININE 1.53 mg/dL (0.60-1.30); MAGNESIUM 2.1 mg/dL (1.80-2.40); PHOSPHORUS 3.4 mg/dL (2.5-4.9)
[2016-07-03 07:05] LABS: INR 1.1 (0.9-1.1); PROTHROMBIN TIME 11.5 SEC (9.4-11.6)
[2016-07-03] MEDS: BUDESONIDE 0.5 MG/2 ML NEB SOLUTION NEB SCH ×2 (07:14→19:48)
[2016-07-03] MEDS: VANCOMYCIN HCL 750 MG in DEXTROSE 5%-WATER 150 ML IV SCH (07:53)
[2016-07-03] MEDS: DOCUSATE SODIUM 100 MG CAPSULE PO SCH ×2 (07:54→21:29)
[2016-07-03] MEDS: SIMVASTATIN 20 MG TABLET PO SCH (07:54)
[2016-07-03] MEDS: CLOPIDOGREL BISULFATE 75 MG TABLET PO SCH (07:54)
[2016-07-03] MEDS: ASPIRIN 81 MG CHEWABLE TABLET PO SCH (07:54)
[2016-07-03] MEDS ORDERED: OXYMETAZOLINE HCL 0.05% 15 ML NASAL SPRAY NASAL ONE (07:58)
[2016-07-03] MEDS ORDERED: PHENYLEPHRINE HCL 1% 15 ML NASAL SPRAY NASAL ONE (07:58)
[2016-07-03] MEDS ORDERED: LIDOCAINE HCL 1%/EPI 1:200,000/PF 10 ML VIAL ONE ×2 (07:59→11:52)
[2016-07-03] MEDS ORDERED: MUPIROCIN CALCIUM 2% 22 GM OINTMENT ONE (07:59)
[2016-07-03 08:00] VITALS: BP 130/58
[2016-07-03] MEDS ORDERED: SODIUM CHLORIDE 0.9% 1,000 ML IV ONE ×3 (08:00→10:30)
[2016-07-03] MEDS ORDERED: SODIUM CHLORIDE 0.9% 0 ML IV ONE (08:00)
[2016-07-03] MEDS: PANTOPRAZOLE SODIUM 40 MG/VIAL IVP SCH (08:10)
[2016-07-03] MEDS ORDERED: GELATIN SPONGE,ABSORBABLE 12-7 MM TP ONE (09:20)
[2016-07-03] MEDS ORDERED: SODIUM CHLORIDE 0.9% 10 ML ONE (09:52)
[2016-07-03] MEDS: FAT EMULSIONS 20% 100 ML IV SCH ×2 (10:24→13:00)
[2016-07-03] MEDS ORDERED: DEXTROSE 5%-WATER 1,000 ML IV ONE ×2 (10:30→10:33)
[2016-07-03] MEDS ORDERED: BENZOCAINE 20% 50 MCG/SPRAY 57 GM ONE (10:34)
[2016-07-03] MEDS: AMIODARONE HCL 750 MG in DEXTROSE 5%-WATER 485 ML IV SCH (11:10)
[2016-07-03 12:45] VITALS: BP 147/69
[2016-07-03 14:11] LABS: GLUCOSE COMMENT 1 Received Meds; GLUCOSE,POINT OF CARE 134 MG/DL (70-110)
[2016-07-03 14:11] LABS: GLUCOSE COMMENT 1 Received Meds; GLUCOSE,POINT OF CARE 163 MG/DL (70-110)
[2016-07-03 14:11] LABS: GLUCOSE COMMENT 1 Received Meds; GLUCOSE,POINT OF CARE 145 MG/DL (70-110)
[2016-07-03 14:11] LABS: GLUCOSE COMMENT 1 Received Meds; GLUCOSE,POINT OF CARE 175 MG/DL (70-110)
[2016-07-03 14:11] LABS: GLUCOSE COMMENT 1 Received Meds; GLUCOSE,POINT OF CARE 158 MG/DL (70-110)
[2016-07-03 14:11] LABS: GLUCOSE,POINT OF CARE 169 MG/DL (70-110)
[2016-07-03 16:00] VITALS: BP 129/52
[2016-07-03] MEDS ORDERED: MORPHINE SULFATE 2 MG/ML SYRINGE IVP PRN (19:45)
[2016-07-03] MEDS ORDERED: DEXTROSE 50%-WATER 25 GM/50 ML SYRINGE IVP PRN (19:45)
[2016-07-03 20:00] VITALS: BP 117/57
[2016-07-03] MEDS: AMIODARONE HCL 200 MG TABLET PO SCH (21:28)
[2016-07-04] VITALS: BP 117/53
[2016-07-04 00:02] LABS: GLUCOSE,POINT OF CARE 127 MG/DL (70-110)
[2016-07-04 00:02] LABS: GLUCOSE COMMENT 1 Received Meds; GLUCOSE,POINT OF CARE 151 MG/DL (70-110)
[2016-07-04] MEDS: HEPARIN SODIUM,PORCINE 5,000 UNITS/ML VIAL SQ SCH ×3 (00:04→15:25)
[2016-07-04] MEDS ORDERED: MIDAZOLAM HCL 2 MG/2 ML VIAL IVP ONE (00:18)
[2016-07-04] MEDS ORDERED: EPHEDrine SULFATE 50 MG/ML VIAL IM ONE (00:18)
[2016-07-04] MEDS ORDERED: 0.9% SODIUM CHLORIDE 10 ML VIAL IVP ONE (00:18)
[2016-07-04] MEDS ORDERED: FentaNYL CITRATE-PF 100 MCG/2 ML VIAL IVP ONE (00:18)
[2016-07-04] MEDS ORDERED: PROPOFOL 1% 20 ML VIAL IVP ONE (00:18)
[2016-07-04 04:00] VITALS: BP 113/50
[2016-07-04] MEDS ORDERED: SODIUM CHLORIDE 0.9% 250 ML IV ONE (04:23)
[2016-07-04 06:23] LABS: INR 1.1 (0.9-1.1); PROTHROMBIN TIME 11.2 SEC (9.4-11.6)
[2016-07-04 06:24] LABS: CALCIUM, TOTAL 8.4 mg/dL (8.8-10.5); CREATININE 1.64 mg/dL (0.60-1.30); PHOSPHORUS 3.5 mg/dL (2.5-4.9); POTASSIUM 4.5 mmol/L (3.5-5.1)
[2016-07-04] MEDS: BUDESONIDE 0.5 MG/2 ML NEB SOLUTION NEB SCH ×2 (07:31→20:19)
[2016-07-04 08:00] VITALS: BP 122/54
[2016-07-04] MEDS: ASPIRIN 81 MG CHEWABLE TABLET PO SCH (08:38)
[2016-07-04] MEDS: CLOPIDOGREL BISULFATE 75 MG TABLET PO SCH (08:39)
[2016-07-04] MEDS: LEVOFLOXACIN 750 MG/D5% WATER 150 ML IV SCH (08:52)
[2016-07-04] MEDS: PANTOPRAZOLE SODIUM 40 MG/VIAL IVP SCH (08:52)
[2016-07-04] MEDS: VANCOMYCIN HCL 750 MG in DEXTROSE 5%-WATER 150 ML IV SCH (08:52)
[2016-07-04] MEDS: EPOETIN ALFA 10,000 UNITS/ML VIAL SQ SCH (08:52)
[2016-07-04] MEDS: DOCUSATE SODIUM 100 MG CAPSULE PO SCH ×2 (08:53→20:50)
[2016-07-04] MEDS: SIMVASTATIN 20 MG TABLET PO SCH (09:00)
[2016-07-04] MEDS: AMIODARONE HCL 200 MG TABLET PO SCH ×2 (09:00→20:50)
[2016-07-04] MEDS ORDERED: SODIUM CHLORIDE 0.9% 1,000 ML IV ONE (10:52)
[2016-07-04] MEDS ORDERED: CeFAZolin 1 GM/DEXTROSE 50 ML IV ONE (11:00)
[2016-07-04 12:00] VITALS: BP 145/74
[2016-07-04 16:00] VITALS: BP 134/87
[2016-07-04 20:00] VITALS: BP 103/46
[2016-07-05] VITALS: BP 131/60
[2016-07-05] MEDS: HEPARIN SODIUM,PORCINE 5,000 UNITS/ML VIAL SQ SCH ×4 (01:22→23:31)
[2016-07-05 04:00] VITALS: BP 140/67
[2016-07-05] MEDS: INSULIN REGULAR, HUMAN 100 UNITS/ML SQ PRN ×3 (04:52→21:13)
[2016-07-05 05:22] LABS: CALCIUM, TOTAL 8.2 mg/dL (8.8-10.5); CREATININE 1.59 mg/dL (0.60-1.30); POTASSIUM 4.2 mmol/L (3.5-5.1)
[2016-07-05] MEDS: BUDESONIDE 0.5 MG/2 ML NEB SOLUTION NEB SCH ×2 (07:09→21:00)
[2016-07-05] MEDS: VANCOMYCIN HCL 750 MG in DEXTROSE 5%-WATER 150 ML IV SCH (07:20)
[2016-07-05 08:00] VITALS: BP 126/56
[2016-07-05] MEDS: CLOPIDOGREL BISULFATE 75 MG TABLET PO SCH (08:13)
[2016-07-05] MEDS: PANTOPRAZOLE SODIUM 40 MG/VIAL IVP SCH (08:13)
[2016-07-05] MEDS: ASPIRIN 81 MG CHEWABLE TABLET PO SCH (08:13)
[2016-07-05] MEDS: SIMVASTATIN 20 MG TABLET PO SCH (08:13)
[2016-07-05] MEDS: AMIODARONE HCL 200 MG TABLET PO SCH ×2 (08:13→21:00)
[2016-07-05] MEDS: DOCUSATE SODIUM 100 MG CAPSULE PO SCH ×2 (08:14→21:00)
[2016-07-05 08:29] LABS: ABG A-A DIFF O2 77.1 mmHg (10-20.0); ABG BASE EXCESS -2.4 mmol/L (-2.0-3.0); ABG HCO3 23.1 mmol/L (22.0-26.0); ABG OXYHEMOGLOBIN 98.2 % (94.0-100.0); ABG PCO2 34 mmHg (35-45); ABG PH 7.426 (7.35-7.450); TEMPERATURE, FAHRENHEIT, BG 99.7 FAHREN (96.0-98.6)
[2016-07-05 08:30] LABS: ALLEN TEST, BLOOD GAS Positive
[2016-07-05 11:16] LABS: GLUCOSE,POINT OF CARE 109 MG/DL (70-110)
[2016-07-05 11:16] LABS: GLUCOSE COMMENT 1 Received Meds; GLUCOSE,POINT OF CARE 164 MG/DL (70-110)
[2016-07-05 11:16] LABS: GLUCOSE,POINT OF CARE 124 MG/DL (70-110)
[2016-07-05 12:00] VITALS: BP 152/71
[2016-07-05 16:00] VITALS: BP 141/61
[2016-07-05 20:00] VITALS: BP 100/59
[2016-07-05] MEDS ORDERED: SODIUM CHLORIDE 0.9% 100 ML ONE (20:34)
[2016-07-05 21:31] LABS: GLUCOSE,POINT OF CARE 112 MG/DL (70-110)
[2016-07-05 21:31] LABS: GLUCOSE,POINT OF CARE 116 MG/DL (70-110)
[2016-07-05 21:36] LABS: GLUCOSE,POINT OF CARE 148 MG/DL (70-110)
[2016-07-05 21:36] LABS: GLUCOSE,POINT OF CARE 85 MG/DL (70-110)
[2016-07-05 21:36] LABS: GLUCOSE,POINT OF CARE 122 MG/DL (70-110)
[2016-07-05 21:37] LABS: GLUCOSE COMMENT 1 Received Meds; GLUCOSE,POINT OF CARE 170 MG/DL (70-110)
[2016-07-05 21:37] LABS: GLUCOSE,POINT OF CARE 104 MG/DL (70-110)
[2016-07-06] VITALS (7 sets, daily range): BP systolic 104–140; BP diastolic 50–78
[2016-07-06] MEDS: INSULIN REGULAR, HUMAN 100 UNITS/ML SQ PRN ×2 (05:09→18:09)
[2016-07-06 05:46] LABS: CALCIUM, TOTAL 8.1 mg/dL (8.8-10.5); CREATININE 1.5 mg/dL (0.60-1.30); POTASSIUM 4.1 mmol/L (3.5-5.1)
[2016-07-06] MEDS: LEVOFLOXACIN 750 MG/D5% WATER 150 ML IV SCH (07:22)
[2016-07-06] MEDS: VANCOMYCIN HCL 750 MG in DEXTROSE 5%-WATER 150 ML IV SCH (07:58)
[2016-07-06] MEDS: HEPARIN SODIUM,PORCINE 5,000 UNITS/ML VIAL SQ SCH ×2 (08:38→17:50)
[2016-07-06] MEDS: ASPIRIN 81 MG CHEWABLE TABLET PO SCH (08:39)
[2016-07-06] MEDS: SIMVASTATIN 20 MG TABLET PO SCH (08:39)
[2016-07-06] MEDS: CLOPIDOGREL BISULFATE 75 MG TABLET PO SCH (08:39)
[2016-07-06] MEDS: PANTOPRAZOLE SODIUM 40 MG/VIAL IVP SCH (08:39)
[2016-07-06] MEDS: AMIODARONE HCL 200 MG TABLET PO SCH ×2 (08:39→21:07)
[2016-07-06] MEDS: DOCUSATE SODIUM 100 MG CAPSULE PO SCH ×2 (08:40→21:07)
[2016-07-06] MEDS: EPOETIN ALFA 10,000 UNITS/ML VIAL SQ SCH (08:40)
[2016-07-06] MEDS: BUDESONIDE 0.5 MG/2 ML NEB SOLUTION NEB SCH ×2 (09:14→21:16)
[2016-07-06] MEDS: ACETAMINOPHEN 325 MG TABLET PO PRN (22:23)
[2016-07-07] MEDS: HEPARIN SODIUM,PORCINE 5,000 UNITS/ML VIAL SQ SCH ×4 (00:14→23:35)
[2016-07-07 02:27] LABS: GLUCOSE,POINT OF CARE 127 MG/DL (70-110)
[2016-07-07 02:27] LABS: GLUCOSE,POINT OF CARE 153 MG/DL (70-110)
[2016-07-07 04:17] VITALS: BP 130/59
[2016-07-07] MEDS: INSULIN REGULAR, HUMAN 100 UNITS/ML SQ PRN ×3 (06:17→23:47)
[2016-07-07 07:28] VITALS: BP 125/51
[2016-07-07 07:51] LABS: GLUCOSE COMMENT 1 Received Meds; GLUCOSE,POINT OF CARE 185 MG/DL (70-110)
[2016-07-07 07:51] LABS: GLUCOSE,POINT OF CARE 160 MG/DL (70-110)
[2016-07-07] MEDS: BUDESONIDE 0.5 MG/2 ML NEB SOLUTION NEB SCH ×2 (08:30→19:58)
[2016-07-07] MEDS: AMIODARONE HCL 200 MG TABLET PO SCH ×2 (08:36→21:29)
[2016-07-07] MEDS: CLOPIDOGREL BISULFATE 75 MG TABLET PO SCH (08:36)
[2016-07-07] MEDS: DOCUSATE SODIUM 100 MG CAPSULE PO SCH ×2 (08:36→21:00)
[2016-07-07] MEDS: SIMVASTATIN 20 MG TABLET PO SCH (08:36)
[2016-07-07] MEDS: ASPIRIN 81 MG CHEWABLE TABLET PO SCH (08:36)
[2016-07-07] MEDS: PANTOPRAZOLE SODIUM 40 MG/VIAL IVP SCH (08:37)
[2016-07-07 09:29] LABS: CALCIUM, TOTAL 8.2 mg/dL (8.8-10.5); CREATININE 1.72 mg/dL (0.60-1.30); POTASSIUM 4.8 mmol/L (3.5-5.1)
[2016-07-07 09:41] LABS: BASOPHILS % (AUTO) 0.8 % (0.0-2.0); EOSINOPHILS % (AUTO) 4.1 % (1.0-6.0); HEMATOCRIT 27.1 % (41-53); HEMOGLOBIN 8.6 g/dL (13.5-17.5); LYMPHOCYTES # (AUTO) 1.8 K/uL (1.0-4.8); LYMPHOCYTES % (AUTO) 26.4 % (22.0-44.0); MEAN CORPUSCULAR HEMOGLOBIN 27.1 pg (26.0-34.0); MEAN CORPUSCULAR HGB CONC 31.8 G/dL (31.0-37.0); MEAN CORPUSCULAR VOLUME 85 fL (80-100); MONOCYTES # (AUTO) 1.1 K/uL (0.1-1.0); MONOCYTES % (AUTO) 17.1 % (2.0-9.0); NEUTROPHILS # (AUTO) 3.4 K/uL (1.8-7.7); NEUTROPHILS % (AUTO) 51.6 % (40.0-70.0); PLATELET COUNT (AUTO) 271 K/uL (150-450); RED BLOOD CELL COUNT(AUTO) 3.18 MIL/uL (4.50-5.90); RED CELL DISTRIBUTION WIDTH 16.6 % (11.5-14.5); WHITE BLOOD COUNT (AUTO) 6.7 K/uL (4.5-11.0)
[2016-07-07] MEDS ORDERED: SODIUM CHLORIDE 0.9% 250 ML IV ONE (10:54)
[2016-07-07] MEDS: VANCOMYCIN HCL 750 MG in DEXTROSE 5%-WATER 150 ML IV SCH (10:58)
[2016-07-07 11:02] VITALS: BP 134/61
[2016-07-07 15:01] LABS: GLUCOSE COMMENT 1 Received Meds; GLUCOSE,POINT OF CARE 165 MG/DL (70-110)
[2016-07-07 15:12] VITALS: BP 131/61
[2016-07-07] MEDS ORDERED: 0.9% SODIUM CHLORIDE 5 ML NEB SOLUTION NEB ONE (20:00)
[2016-07-07 20:16] LABS: GLUCOSE COMMENT 1 Received Meds; GLUCOSE,POINT OF CARE 165 MG/DL (70-110)
[2016-07-07 20:30] VITALS: BP 140/56
[2016-07-07 23:12] VITALS: BP 125/56
[2016-07-08 01:26] LABS: GLUCOSE COMMENT 1 Received Meds; GLUCOSE,POINT OF CARE 157 MG/DL (70-110)
[2016-07-08] MEDS: ACETAMINOPHEN 325 MG TABLET PO PRN (02:45)
[2016-07-08 03:49] VITALS: BP 140/66
[2016-07-08] MEDS: INSULIN REGULAR, HUMAN 100 UNITS/ML SQ PRN ×2 (06:02→12:02)
[2016-07-08] MEDS: BUDESONIDE 0.5 MG/2 ML NEB SOLUTION NEB SCH ×2 (07:50→20:09)
[2016-07-08 07:51] LABS: CALCIUM, TOTAL 8.1 mg/dL (8.8-10.5); CREATININE 1.75 mg/dL (0.60-1.30); POTASSIUM 4.7 mmol/L (3.5-5.1)
[2016-07-08 08:16] VITALS: BP 146/68
[2016-07-08] MEDS: VANCOMYCIN HCL 750 MG in DEXTROSE 5%-WATER 150 ML IV SCH (08:29)
[2016-07-08] MEDS: ASPIRIN 81 MG CHEWABLE TABLET PO SCH (08:30)
[2016-07-08] MEDS: CLOPIDOGREL BISULFATE 75 MG TABLET PO SCH (08:30)
[2016-07-08] MEDS: AMIODARONE HCL 200 MG TABLET PO SCH ×2 (08:30→22:41)
[2016-07-08] MEDS: HEPARIN SODIUM,PORCINE 5,000 UNITS/ML VIAL SQ SCH ×2 (08:30→18:34)
[2016-07-08] MEDS: SIMVASTATIN 20 MG TABLET PO SCH (08:30)
[2016-07-08] MEDS: PANTOPRAZOLE SODIUM 40 MG/VIAL IVP SCH (08:30)
[2016-07-08] MEDS: DOCUSATE SODIUM 100 MG CAPSULE PO SCH ×2 (08:32→22:41)
[2016-07-08] MEDS: LEVOFLOXACIN 750 MG/D5% WATER 150 ML IV SCH (09:33)
[2016-07-08 12:19] VITALS: BP 143/75
[2016-07-08 16:14] VITALS: BP 143/72
[2016-07-08 18:01] LABS: GLUCOSE COMMENT 1 Received Meds; GLUCOSE,POINT OF CARE 162 MG/DL (70-110)
[2016-07-08 18:01] LABS: GLUCOSE COMMENT 1 Received Meds; GLUCOSE,POINT OF CARE 156 MG/DL (70-110)
[2016-07-08 18:26] LABS: APPEARANCE,URINE CLOUDY (CLEAR); GLUCOSE, URINE (UA) NEGATIVE (NEGATIVE); KETONES,URINE NEGATIVE (NEGATIVE); LEUKOCYTE ESTERASE ,URINE SMALL (NEGATIVE); OCCULT BLOOD,URINE MODERATE (NEGATIVE); PH,URINE 5.5 (5.0-8.0); PROTEIN,URINE POS 1+ (NEGATIVE)
[2016-07-08 18:28] LABS: ADD UA MICROSCOPIC YES
[2016-07-08 18:34] LABS: SQUAMOUS EPITHELIAL CELL,UR Moderate /LPF (None Seen)
[2016-07-08 19:31] VITALS: BP 139/60
[2016-07-08] MEDS ORDERED: 0.9% SODIUM CHLORIDE 5 ML NEB SOLUTION NEB ONE (20:10)
[2016-07-09] MEDS: HEPARIN SODIUM,PORCINE 5,000 UNITS/ML VIAL SQ SCH ×3 (00:05→16:37)
[2016-07-09] MEDS: INSULIN REGULAR, HUMAN 100 UNITS/ML SQ PRN ×4 (00:13→18:33)
[2016-07-09 00:27] VITALS: BP 150/75
[2016-07-09 04:18] VITALS: BP 144/88
[2016-07-09 07:26] VITALS: BP 134/68
[2016-07-09 07:39] LABS: CALCIUM, TOTAL 8.1 mg/dL (8.8-10.5); CREATININE 1.69 mg/dL (0.60-1.30); POTASSIUM 4.8 mmol/L (3.5-5.1)
[2016-07-09] MEDS: DOCUSATE SODIUM 100 MG CAPSULE PO SCH ×2 (07:59→20:26)
[2016-07-09] MEDS: VANCOMYCIN HCL 750 MG in DEXTROSE 5%-WATER 150 ML IV SCH (08:08)
[2016-07-09] MEDS: BUDESONIDE 0.5 MG/2 ML NEB SOLUTION NEB SCH ×2 (08:30→20:21)
[2016-07-09] MEDS: ASPIRIN 81 MG CHEWABLE TABLET PO SCH (09:17)
[2016-07-09] MEDS: PANTOPRAZOLE SODIUM 40 MG/VIAL IVP SCH (09:17)
[2016-07-09] MEDS: AMIODARONE HCL 200 MG TABLET PO SCH ×2 (09:17→20:38)
[2016-07-09] MEDS: EPOETIN ALFA 10,000 UNITS/ML VIAL SQ SCH (09:17)
[2016-07-09] MEDS: CLOPIDOGREL BISULFATE 75 MG TABLET PO SCH (09:17)
[2016-07-09] MEDS: SIMVASTATIN 20 MG TABLET PO SCH (09:18)
[2016-07-09 11:00] VITALS: BP 158/66
[2016-07-09 12:01] LABS: GLUCOSE,POINT OF CARE 131 MG/DL (70-110)
[2016-07-09] MEDS ORDERED: CefTRIAXone 1 GM/DEXTROSE 50 ML IV SCH (14:00)
[2016-07-09 16:55] VITALS: BP 143/75
[2016-07-09 19:49] VITALS: BP 139/65
[2016-07-10 09:41] LABS: GLUCOSE COMMENT 1 Received Meds; GLUCOSE,POINT OF CARE 160 MG/DL (70-110)
[2016-07-10 09:41] LABS: GLUCOSE COMMENT 1 Received Meds; GLUCOSE,POINT OF CARE 165 MG/DL (70-110)
[2016-07-10 09:41] LABS: GLUCOSE COMMENT 1 Received Meds; GLUCOSE,POINT OF CARE 168 MG/DL (70-110)
[2016-07-10 09:41] LABS: GLUCOSE,POINT OF CARE 132 MG/DL (70-110)
== END 2016-07-09 20:56 | DRG 3 ==
LOC: EMS 06:27 → ICU 09:48 → 5S 07-06 14:20
PROVIDERS: ADMIT Internal Medicine; ATTEND Internal Medicine
PROC: 0W9B3ZZ Drainage of Left Pleural Cavity, Percutaneous Approach (ICD-10-PCS; 2016-06-20)
PROC: 0BH17EZ Insertion of Endotracheal Airway into Trachea, Via Natural or Artificial Opening (ICD-10-PCS; 2016-06-21)
PROC: 0DH68UZ Insertion of Feeding Device into Stomach, Via Natural or Artificial Opening Endoscopic (ICD-10-PCS; 2016-06-21)
PROC: 5A1955Z Respiratory Ventilation, Greater than 96 Consecutive Hours (ICD-10-PCS; principal; 2016-06-21 13:30)
PROC: 0BH17EZ Insertion of Endotracheal Airway into Trachea, Via Natural or Artificial Opening (ICD-10-PCS; 2016-06-23)
PROC: 5A1955Z Respiratory Ventilation, Greater than 96 Consecutive Hours (ICD-10-PCS; 2016-06-23)
PROC: 0B968ZX Drainage of Right Lower Lobe Bronchus, Via Natural or Artificial Opening Endoscopic, Diagnostic (ICD-10-PCS; 2016-06-23)
PROC: 3E0436Z Introduction of Nutritional Substance into Central Vein, Percutaneous Approach (ICD-10-PCS; 2016-06-29)
PROC: 05HB33Z Insertion of Infusion Device into Right Basilic Vein, Percutaneous Approach (ICD-10-PCS; 2016-06-29)
PROC: B54MZZA Ultrasonography of Right Upper Extremity Veins, Guidance (ICD-10-PCS; 2016-06-29)
PROC: 0B110F4 Bypass Trachea to Cutaneous with Tracheostomy Device, Open Approach (ICD-10-PCS; 2016-07-03)
PROC: 09JK4ZZ Inspection of Nasal Mucosa and Soft Tissue, Percutaneous Endoscopic Approach (ICD-10-PCS; 2016-07-03)
PROC: 0DH68UZ Insertion of Feeding Device into Stomach, Via Natural or Artificial Opening Endoscopic (ICD-10-PCS; 2016-07-04)
PROC: 0GBG0ZZ Excision of Left Thyroid Gland Lobe, Open Approach (ICD-10-PCS; 2016-07-09)
DX: A41.9 Sepsis, unspecified organism (principal); E43 Unspecified severe protein-calorie malnutrition; G93.41 Metabolic encephalopathy; I50.23 Acute on chronic systolic (congestive) heart failure; J69.0 Pneumonitis due to inhalation of food and vomit; J96.01 Acute respiratory failure with hypoxia; J96.02 Acute respiratory failure with hypercapnia; N17.0 Acute kidney failure with tubular necrosis; I13.0 Hypertensive heart and chronic kidney disease with heart failure and stage 1 through stage 4 chronic kidney disease, or unspecified chronic kidney disease; K92.2 Gastrointestinal hemorrhage, unspecified; L03.115 Cellulitis of right lower limb; L03.116 Cellulitis of left lower limb; M62.82 Rhabdomyolysis; N18.4 Chronic kidney disease, stage 4 (severe); N39.0 Urinary tract infection, site not specified; Z99.11 Dependence on respirator [ventilator] status; I82.619 Acute embolism and thrombosis of superficial veins of unspecified upper extremity; D64.9 Anemia, unspecified; D69.6 Thrombocytopenia, unspecified; E11.21 Type 2 diabetes mellitus with diabetic nephropathy; E11.22 Type 2 diabetes mellitus with diabetic chronic kidney disease; E11.51 Type 2 diabetes mellitus with diabetic peripheral angiopathy without gangrene; E11.649 Type 2 diabetes mellitus with hypoglycemia without coma; E78.00 Pure hypercholesterolemia, unspecified; E78.5 Hyperlipidemia, unspecified; E87.5 Hyperkalemia; E87.6 Hypokalemia; I25.10 Atherosclerotic heart disease of native coronary artery without angina pectoris; I25.5 Ischemic cardiomyopathy; I44.7 Left bundle-branch block, unspecified; I48.0 Paroxysmal atrial fibrillation; I87.2 Venous insufficiency (chronic) (peripheral); I49.3 Ventricular premature depolarization; I51.3 Intracardiac thrombosis, not elsewhere classified; E55.9 Vitamin D deficiency, unspecified; J40 Bronchitis, not specified as acute or chronic; K21.9 Gastro-esophageal reflux disease without esophagitis; N28.1 Cyst of kidney, acquired; R13.10 Dysphagia, unspecified; S00.03XA Contusion of scalp, initial encounter; Z87.891 Personal history of nicotine dependence; Z79.4 Long term (current) use of insulin; Z95.5 Presence of coronary angioplasty implant and graft; Z68.24 Body mass index [BMI] 24.0-24.9, adult; Z79.899 Other long term (current) drug therapy; Z79.02 Long term (current) use of antithrombotics/antiplatelets; Z78.1 Physical restraint status; Z79.82 Long term (current) use of aspirin; Z83.3 Family history of diabetes mellitus; Z82.49 Family history of ischemic heart disease and other diseases of the circulatory system
CPT/HCPCS: 31500; 31624; 32555; 36245; 36569; 51702; 70450; 70551; 76770; 76937; 76942; 82271; 82570; 82805; 82962; 83615; 83735; 83986; 84100; 84134; 84145; 84156; 84300; 84443; 84478; 84540; 85014; 85018; 87015; 87040; 87070; 87081; 87086; 87101; 87106; 87205; 87252; 87324; 87449; 87804; 89050; 89051; 93005; 93971; 94002; 94003; 94640; 96365; 96368; 96375; 99291; C9113; J0131; J0282; J0610; J0690; J0696; J0885; J1160; J1644; J1815; J1940; J1956; J2250; J2270; J2370; J2704; J3010; J3370; J3475; J3480; J3490; J7030; J7040; J7050; J7060; J7070; J7131; P9047